=== PATIENT | male | born 1970 | race Hispanic/Latino ===

== ENCOUNTER 2018-01-09 22:07 | Emergency (ER) | payer OTHER ==
--- NOTE | 2018-01-10 00:09 | XRay Report ---
FINAL REPORT EXAM: XR FOOT 3+V RT TECHNIQUE: Three views of the right foot: AP, oblique and lateral projections. PRIORS: None. FINDINGS: Osseous mineralization is normal. There is suggested cortical irregularity at the medial margin of the 4th toe proximal phalanx base which may represent a nondisplaced fracture in the appropriate clinical setting. Metatarsals intact. Bipartite tibial sesamoid and mild degenerative changes of the 1st metatarsophalangeal joint. Mild midfoot degenerative changes. There is no ankle joint effusion. A small plantar calcaneal spurs present. IMPRESSION: Possible nondisplaced fracture at the 4th toe proximal phalanx base. Correlation with clinical exam requested. Mild degenerative changes of the midfoot and 1st metatarsophalangeal joint. Small heel spur at the plantar fascia origin. HISTORY: post glf, foot pain and cannot bare weight.
--- NOTE | 2018-01-10 02:55 | Emergency Department Report ---
ED Lower Extremity HPI - General Chief Complaint: Extremity Injury, Lower Stated Complaint: RT FOOT PAIN Time Seen by Provider: 01/10/18 02:50 Source: patient Mode of arrival: Ambulatory Limitations: No Limitations - History of Present Illness Initial Comments: 47-year-old male comes in complaining or right foot pain. Patient states he was in a ground level fall at home while he was working. No other complaints voiced. This report is pain to 10 out of 10 on his pain scale. Patient reports that he cannot bear any weight on his right foot. MD Complaint: foot injury -: This afternoon Injury: Toes: Right (4th ) Type of Injury: unknown Place: home Severity scale (0 -10): 10 Improves With: immobilization, rest Worsens With: weight bearing, palpation Context: fall Associated Symptoms: swelling - Related Data Previous Rx's Medication Instructions Recorded Last Taken Type traMADol [Ultram] 50 mg PO Q6H PRN #5 tablet 12/23/13 Unknown Rx HYDROcodone/APAP 5-325 [[place] 5 mg PO TID PRN #12 tablet 01/10/18 Unknown Rx 5-325 mg TAB] Ibuprofen [Motrin 800 MG tab] 800 mg PO Q8HR PRN #30 tablet 01/10/18 Unknown Rx Allergies Allergy/AdvReac Type Severity Reaction Status Date / Time Penicillins Allergy Unknown Verified 06/09/13 20:56 ED Review of Systems ROS: Stated complaint: RT FOOT PAIN Other details as noted in HPI Comment: All other systems reviewed and negative Gastrointestinal: denies: abdominal pain, nausea, diarrhea Genitourinary: denies: urgency, dysuria Musculoskeletal: joint swelling, arthralgia Skin: denies: rash, lesions Neurological: denies: headache, weakness, paresthesias Psychiatric: denies: anxiety, depression Hematological/Lymphatic: denies: easy bleeding, easy bruising ED Past Medical Hx - Past Medical History Previous Medical History?: Yes Hx CVA: Yes (2 "mini strokes", no deficits 1999) - Surgical History Past Surgical History?: Yes Additional Surgical History: right knee surg x6, pylonidal cyst surg x2, cervical fusion with bone graft from left hip 2 weeks ago - Social History Smoking Status: Current Every Day Smoker Substance Use Type: Alcohol - Medications Home Medications: Home Medications Medication Instructions Recorded Confirmed Last Taken Type traMADol [Ultram] 50 mg PO Q6H PRN #5 tablet 12/23/13 Unknown Rx HYDROcodone/APAP 5-325 [[place] 5 mg PO TID PRN #12 tablet 01/10/18 Unknown Rx 5-325 mg TAB] Ibuprofen [Motrin 800 MG tab] 800 mg PO Q8HR PRN #30 tablet 01/10/18 Unknown Rx ED Physical Exam - General Limitations: No Limitations General appearance: alert, in no apparent distress - Respiratory Respiratory exam: Present: normal lung sounds bilaterally. Absent: respiratory distress - Cardiovascular Cardiovascular Exam: Present: regular rate, normal rhythm. Absent: systolic murmur, diastolic murmur, rubs, gallop - Expanded Lower Extremity Exam Right Upper Leg exam: Present: normal inspection, full ROM Knee exam: Present: normal inspection, full ROM Lower Leg exam: Present: normal inspection, full ROM Ankle exam: Present: normal inspection, full ROM. Absent: tenderness, swelling Foot/Toe exam: Present: tenderness (fourth digit), swelling. Absent: ecchymosis , deformity, dislocation Neuro vascular tendon exam: Present: no vascular compromise Gait: Positive: observed and limited by pain - Back Exam Back exam: Present: normal inspection - Neurological Exam Neurological exam: Present: alert, oriented X3 - Psychiatric Psychiatric exam: Present: normal affect, normal mood - Skin Skin exam: Present: warm, dry, intact, normal color. Absent: rash ED Course Vital Signs 01/09/18 23:40 Temperature 98.1 F Pulse Rate 82 Respiratory 18 Rate Blood Pressure 115/76 O2 Sat by Pulse 95 Oximetry ED Lower Extremity MDM - Medical Decision Making Patient has been evaluated by this provider in fast track. X-rays of foot shows that there is a nondisplaced proximal fracture of the 4 phalanx Discharge patient on [place] 5/325 dispensed 12 pills well as ibuprofen 800 mg every 8 hours when necessary for pain Referral to orthopedist. Surgical boot with shelton taped to the toe and crutches. Patient verbalizes understanding Critical care attestation.: If time is entered above; I have spent that time in minutes in the direct care of this critically ill patient, excluding procedure time. ED Disposition Clinical Impression: Toe fracture, right Qualifiers: Toe: lesser toe Fracture type: closed Phalanx: proximal Fracture alignment: nondisplaced Fracture healing: with nonunion Disposition: - TO HOME OR SELFCARE Is pt being admited?: No Does the pt Need Aspirin: No Condition: Stable Instructions: Toe Fracture (ED) Additional Instructions: These take pain medication as prescribed. Do not operate heavy machinery while taking the [place]. Please follow up with orthopedics. Please continue with ice resting elevation to injured foot. Prescriptions: HYDROcodone/APAP 5-325 [[place] 5-325 mg TAB] 5 mg PO TID PRN #12 tablet PRN Reason: Pain Ibuprofen [Motrin 800 MG tab] 800 mg PO Q8HR PRN #30 tablet PRN Reason: Pain Referrals: PRIMARY CARE, [Primary Care Provider] - 3-5 Days OCTAVIA SNYDER MD [Staff Physician] - 3-5 Days ELEANOR PARIS MD [Staff Physician] - 3-5 Days Forms: Work/School Release Form(ED)
[2018-01-10 03:15] VITALS: BP 110/75
== END 2018-01-10 03:00 | disposition home or self-care (01) ==
LOC: ED 22:07
DX: S92.514A Nondisplaced fracture of proximal phalanx of right lesser toe(s), initial encounter for closed fracture (principal); F17.200 Nicotine dependence, unspecified, uncomplicated; Z98.890 Other specified postprocedural states; Z88.0 Allergy status to penicillin; Z86.73 Personal history of transient ischemic attack (TIA), and cerebral infarction without residual deficits; W18.39XA Other fall on same level, initial encounter; Y93.89 Activity, other specified; Y92.009 Unspecified place in unspecified non-institutional (private) residence as the place of occurrence of the external cause; Y99.8 Other external cause status

== ENCOUNTER 2018-11-05 01:35 | Emergency (ER) | payer SELFPAY ==
--- NOTE | 2018-11-05 03:50 | Ultrasound Report ---
PROCEDURE: US TESTICULAR DOPPLER COMP TECHNIQUE: Ultrasound images obtained of bilateral testicles with color flow and Doppler tracings. HISTORY: pain and swelling COMPARISONS: No priors FINDINGS: The right testicle is normal in contour and echotexture with normal intratesticular vascularity. The right epididymis is within normal limits. There is no evidence of right hydrocele. The left testicle is normal in contour and echotexture with normal vascularity. Left epididymis within normal limits. Prominent vessels adjacent to the left testicle suggest varicocele IMPRESSION: Testicles normal in contour and echotexture with normal vascularity. Prominent vessels lateral to the left testicle consistent with varicocele.. This document is electronically signed by Ever Keene MD., November 05 2018 03:48:42 AM ET
[2018-11-05] MEDS ORDERED: NORCO 5/325 PO ONE (04:26)
--- NOTE | 2018-11-05 04:28 | Emergency Department Report ---
ED Male HPI - General Chief complaint: Urogenital-Male Stated complaint: GROIN PAIN Source: patient Mode of arrival: Ambulatory Limitations: No Limitations - History of Present Illness Initial comments: This is a 48-year-old male who presents with enlarged left testicle and groin pain for 1 day. 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 Reports swelling and pain started last night when he got home from work. He reports pain is 10 out of 10 on pain scale and worse with sitting or walking. He denies urinary frequency, urgency, dysuria, hematuria, pelvic pain, penile discharge, or low back pain. MD Complaint: testicle pain (left), testicle swelling Onset/Timin -: days(s) Location: right testicle Radiation: none Severity: severe Severity scale (0 -10): 10 Quality: aching Consistency: constant Improves with: none Worsens with: movement, other (sitting) swelling. denies: discharge, mass, rash, urinary retention, blood in urine, dysuria, fever, nausea/vomiting, incontinence - Related Data Sexually active: Yes (one partner) Previous Rx's Medication Instructions Recorded Last Taken Type traMADol [Ultram] 50 mg PO Q6H PRN #5 tablet 12/23/13 Unknown Rx HYDROcodone/APAP 5-325 [[place] 5 mg PO TID PRN #12 tablet 01/10/18 Unknown Rx 5-325 mg TAB] Ibuprofen [Motrin 800 MG tab] 800 mg PO Q8HR PRN #30 tablet 01/10/18 Unknown Rx Ciprofloxacin HCl [Cipro] 500 mg PO BID #20 tablet 11/05/18 Unknown Rx traMADol [Ultram 50 MG tab] 50 mg PO Q6HR PRN #12 tablet 11/05/18 Unknown Rx Allergies Allergy/AdvReac Type Severity Reaction Status Date / Time Penicillins Allergy Unknown Verified 06/09/13 20:56 ED Review of Systems ROS: Stated complaint: GROIN PAIN Other details as noted in HPI Constitutional: denies: chills, fever Respiratory: denies: cough, shortness of breath, wheezing Cardiovascular: denies: chest pain, palpitations Gastrointestinal: denies: abdominal pain, nausea, diarrhea Genitourinary: testicular pain (left). denies: urgency, dysuria Skin: denies: rash, lesions Neurological: denies: headache, weakness, paresthesias ED Past Medical Hx - Past Medical History Hx CVA: Yes (2 "mini strokes", no deficits 1999) - Surgical History Additional Surgical History: right knee surg x6, pylonidal cyst surg x2, cervical fusion with bone graft from left hip 2 weeks ago - Social History Smoking Status: Current Every Day Smoker Substance Use Type: Alcohol - Medications Home Medications: Home Medications Medication Instructions Recorded Confirmed Last Taken Type traMADol [Ultram] 50 mg PO Q6H PRN #5 tablet 12/23/13 Unknown Rx HYDROcodone/APAP 5-325 [[place] 5 mg PO TID PRN #12 tablet 01/10/18 Unknown Rx 5-325 mg TAB] Ibuprofen [Motrin 800 MG tab] 800 mg PO Q8HR PRN #30 tablet 01/10/18 Unknown Rx Ciprofloxacin HCl [Cipro] 500 mg PO BID #20 tablet 11/05/18 Unknown Rx traMADol [Ultram 50 MG tab] 50 mg PO Q6HR PRN #12 tablet 11/05/18 Unknown Rx ED Physical Exam - General Limitations: No Limitations General appearance: alert, in no apparent distress - Respiratory Respiratory exam: Present: normal lung sounds bilaterally. Absent: respiratory distress - Cardiovascular Cardiovascular Exam: Present: regular rate, normal rhythm. Absent: systolic murmur, diastolic murmur, rubs, gallop - GI/Abdominal GI/Abdominal exam: Present: soft, normal bowel sounds - exam: Present: testicular tenderness (right), scrotal swelling (right), circumcision. Absent: urethral discharge, vertical testicular lie External exam: Present: normal external exam - Neurological Exam Neurological exam: Present: alert, oriented X3 - Psychiatric Psychiatric exam: Present: normal affect, normal mood - Skin Skin exam: Present: warm, dry, intact, normal color. Absent: rash ED Medical Decision Making - Radiology Data Radiology results: report reviewed PROCEDURE: US TESTICULAR DOPPLER COMP TECHNIQUE: Ultrasound images obtained of bilateral testicles with color flow and Doppler tracings. HISTORY: pain and swelling COMPARISONS: No priors FINDINGS: The right testicle is normal in contour and echotexture with normal intratesticular vascularity. The right epididymis is within normal limits. There is no evidence of right hydrocele. The left testicle is normal in contour and echotexture with normal vascularity. Left epididymis within normal limits. Prominent vessels adjacent to the left testicle suggest varicocele IMPRESSION: Testicles normal in contour and echotexture with normal vascularity. Prominent vessels lateral to the left testicle consistent with varicocele.. - Medical Decision Making Patient was examined by me. Vitals are normal and patient is in no acute distress. Given [place] 5/325 mg by mouth once while in ER. Obtained a testicular ultrasound. Ultrasound was dictated by the radiologist and report was reviewed by myself. Testicles normal in contour and echotexture with normal vascularity. Prominent vessels lateral to the left testicle consistent with varicocele. The findings are susceptible of epididymitis. Patient informed of results. Start Cipro 500 mg by mouth twice a day 10 days and tramadol 50 mg by mouth every 6 hours when necessary for pain. Plan discussed with patient to discharge home and treat outpatient. He agrees with ER plan. Patient discharged home in stable condition. Follow up with PCP in 2-3 days. Critical care attestation.: If time is entered above; I have spent that time in minutes in the direct care of this critically ill patient, excluding procedure time. ED Disposition Clinical Impression: Testicular pain, left, Testicular swelling, left, Left varicocele, Epididymitis Disposition: - TO HOME OR SELFCARE Is pt being admited?: No Does the pt Need Aspirin: No Condition: Stable Instructions: Epididymitis (ED), Testicle Pain (ED), Varicocele (ED) Additional Instructions: Complete full course of antibiotics as prescribed. Avoid drinking alcohol while taking antibiotics and for up to 24 hours after completion. Follow up with the primary care provider for further evaluation. We are a jock strap for added support while sitting and walking. Return to the emergency room if increased swelling, pain, fever. Prescriptions: Ciprofloxacin HCl [Cipro] 500 mg PO BID #20 tablet traMADol [Ultram 50 MG tab] 50 mg PO Q6HR PRN #12 tablet PRN Reason: Pain Referrals: MATILDE CHAPPELL MD [Primary Care Provider] - 3-5 Days [facility] [Outside] - 3-5 Days LUCAS GUTIERREZ MD [Staff Physician] - 3-5 Days Forms: STI Treatment and Prevention Time of Disposition: 04:44
[2018-11-05 07:45] VITALS: BP 122/78
== END 2018-11-05 05:05 | disposition home or self-care (01) ==
LOC: ED 01:35
DX: N45.1 Epididymitis (principal); I86.1 Scrotal varices; F17.200 Nicotine dependence, unspecified, uncomplicated; Z86.73 Personal history of transient ischemic attack (TIA), and cerebral infarction without residual deficits; Z88.0 Allergy status to penicillin
CPT/HCPCS: 93975

== ENCOUNTER 2018-12-08 09:35 | Emergency (ER) | payer SELFPAY ==
[2018-12-08] MEDS ORDERED: TORADOL IM ONE (10:30)
[2018-12-08] MEDS ORDERED: DELTASONE PO ONE (10:30)
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
--- NOTE | 2018-12-08 11:19 | Cat Scan Report ---
EXAM: CT LUMBAR SPINE WO CON HISTORY: back pain/injury TECHNIQUE: Spiral axial CT images with sagittal and coronal reformatted images are obtained through t he lumbar spine without the administration of intravenous or intrathecal contrast. COMPARISON: None available. FINDINGS: There is no vertebral fracture seen. There is no gross malalignment, spondylolisthesis, retrolisthes is, or spondylolysis seen. There is an approximately 1.7 cm lytic nonexpansile lesion in the central inferior aspect of the L5 vertebral body keeping with a cavernous hemangioma. There is evidence for mild DDD at levels L1-L5 levels, marked by anterior disc bulge/marginal osteoph yte complexes; no gross posterior disc bulge or marginal osteophyte is seen. At L5/S1, there is a mil d chronic appearing posterior disc bulge (projecting 4.9 mm AP) left anterior thecal sac, lateral rec ess, and neural foraminal encroachment, with potential for left L5 and S1 root impingements. Clinical correlation is advised. No evidence for degenerative disc disease or facet joint degenerative diseas e is otherwise seen. There is no gross acute disc herniation seen. Please note that subtle soft tissue abnormalities can b e obscured in this radiographic setting. Consider follow-up MRI if clinically warranted. There is severe aortoiliac atherosclerosis. IMPRESSION: 1. No gross vertebral fracture or malalignment seen. 2. No gross acute disc herniation seen. 3. L5/S1 DDD with mild chronic appearing posterior disc bulge (projecting 4.9 mm AP) left anterior t hecal sac, lateral recess, and neural foraminal encroachment, with potential for left L5 and S1 root impingements. Clinical correlation is advised. This document is electronically signed by Coni Renee MD., Dec 08 2018 11:16:54 AM ET
[2018-12-08 12:25] VITALS: BP 109/74
== END 2018-12-08 12:25 | disposition home or self-care (01) ==
LOC: ED 09:35
DX: M54.5 Low back pain (principal); M19.90 Unspecified osteoarthritis, unspecified site; Z88.0 Allergy status to penicillin; V89.2XXA Person injured in unspecified motor-vehicle accident, traffic, initial encounter; Y93.89 Activity, other specified; Y92.488 Other paved roadways as the place of occurrence of the external cause; Y99.8 Other external cause status
CPT/HCPCS: 72131; 96372; 99283; J1885; J7512

== ENCOUNTER 2019-02-19 23:25 | Emergency (ER) | payer SELFPAY ==
[2019-02-19 23:32] VITALS: BP 132/78
--- NOTE | 2019-02-20 00:57 | Emergency Department Report ---
HPI - General Chief Complaint: Extremity Injury, Lower Time Seen by Provider: 02/20/19 00:35 - HPI HPI: Patient is a 48-year-old male who comes to the ER today complaining of a sore behind his left calf after getting in the [place] with his family. Also com plaining of left knee pain. He has mild swelling of his left knee. He denies any trauma or fall. Patient is ambulatory. ED Past Medical Hx - Past Medical History Previous Medical History?: Yes Hx CVA: Yes (2 "mini strokes", no deficits 1999) Hx Diabetes: Yes Hx Asthma: Yes - Surgical History Past Surgical History?: Yes Additional Surgical History: right knee surg x6, pylonidal cyst surg x2, cervical fusion with bone graft from left hip 2 weeks ago - Family History Family history: no significant - Social History Smoking Status: Current Every Day Smoker Substance Use Type: None - Medications Home Medications: Home Medications Medication Instructions Recorded Confirmed Last Taken Type predniSONE [Deltasone] 20 mg PO DAILY #5 tablet 02/20/19 Unknown Rx ED Review of Systems ROS: Stated complaint: LT KNEE SWELLING WITH PAIN Other details as noted in HPI Comment: All other systems reviewed and negative Physical Exam - Physical Exam Vital Signs: Vital Signs 02/19/19 23:28 Temperature 97.4 F L Pulse Rate 74 Respiratory 18 Rate Blood Pressure 132/78 O2 Sat by Pulse 97 Oximetry Physical Exam: alert and oriented no focal def ambulatory insect bite l calf. no abscess. no infection. dp plus 2 bilaterally no leg swelling. mild knee swelling - ant. no pain on joint line palpation. no cyst. s1s2 lungs cta abd snt ED Course Vital Signs 02/19/19 23:28 Temperature 97.4 F L Pulse Rate 74 Respiratory 18 Rate Blood Pressure 132/78 O2 Sat by Pulse 97 Oximetry ED Medical Decision Making - Radiology Data Radiology results: report reviewed, image reviewed - Medical Decision Making xray neg ambulatory vss no fever mild inflamation around insect bite dc home with dc plan of care and pcp followup Vital Signs 02/19/19 23:28 Temperature 97.4 F L Pulse Rate 74 Respiratory 18 Rate Blood Pressure 132/78 O2 Sat by Pulse 97 Oximetry Critical care attestation.: If time is entered above; I have spent that time in minutes in the direct care of this critically ill patient, excluding procedure time. ED Disposition Clinical Impression: Insect bite, Knee pain Disposition: DC-01 TO HOME OR SELFCARE Is pt being admited?: No Does the pt Need Aspirin: No Condition: Stable Additional Instructions: meds as ordered today keep insect bite clean and dry no ointment over the counter motrin and tylenol for pain rest/elevate your leg follow up pcp this week referral below xray normal today Referrals: PRIMARY CAREMD [Primary Care Provider] - 3-5 Days JOSE ANGEL CONKLIN MD [Staff Physician] - 3-5 Days Time of Disposition: 02:04
[2019-02-20] MEDS ORDERED: IBUPROFEN PO ONE (01:12)
--- NOTE | 2019-02-20 02:04 | XRay Report ---
LEFT KNEE 3 VIEWS INDICATION / CLINICAL INFORMATION: Left knee pain and swelling for 2 weeks with erythema. History of insect bite to left lower leg. COMPARISON: None available. FINDINGS: BONES and JOINT(S): No acute fracture or subluxation. No significant arthritis. SOFT TISSUES: No significant abnormality. ADDITIONAL FINDINGS: None. IMPRESSION: No acute findings. Signer Name: Wil Meza MD Signed: 02/20/2019 1:59 AM Workstation Name: [id number]
== END 2019-02-20 02:24 | disposition home or self-care (01) ==
LOC: ED 23:25
DX: S80.262A Insect bite (nonvenomous), left knee, initial encounter (principal); E11.9 Type 2 diabetes mellitus without complications; I10 Essential (primary) hypertension; F17.200 Nicotine dependence, unspecified, uncomplicated; Z88.0 Allergy status to penicillin; Z86.73 Personal history of transient ischemic attack (TIA), and cerebral infarction without residual deficits; Z98.890 Other specified postprocedural states; W57.XXXA Bitten or stung by nonvenomous insect and other nonvenomous arthropods, initial encounter; Y93.89 Activity, other specified; Y92.89 Other specified places as the place of occurrence of the external cause; Y99.8 Other external cause status
CPT/HCPCS: 99283

== ENCOUNTER 2019-06-13 21:27 | Emergency (ER) | payer SELFPAY ==
[2019-06-13 21:35] VITALS: BP 118/72
--- NOTE | 2019-06-13 22:31 | Emergency Department Report ---
Blank Doc - Documentation Documentation: 48-year-old male that presents with abscess to right buttock area. This initial assessment/diagnostic orders/clinical plan/treatment(s) is/are subject to change based on patient's health status, clinical progression and re- assessment by fellow clinical providers in the ED. Further treatment and workup at subsequent clinical providers discretion. Patient/guardians urged not to elope from the ED as their condition may be serious if not clinically assessed and managed. Initial orders include: 1- Patient sent to [facility] for further evaluation and treatment
[2019-06-13] MEDS ORDERED: LIDOCAINE (2%) 20 MG/1 ML VIAL 20 ML MDV INFILTRATI ONE ×2 (23:15→23:17)
--- NOTE | 2019-06-13 23:47 | Emergency Department Report ---
- General Chief complaint: Skin/Abscess/Foreign Body Stated complaint: KNOT ON BUTTOCKS Time Seen by Provider: 06/13/19 22:30 Source: patient Mode of arrival: Ambulatory Limitations: No Limitations - History of Present Illness Initial comments: Mr. Streeter is s 48 y/o w/m with hx of DMII, that presents with abscess to right buttock area. x 1 week, pt state pain itching redness , no fever or chills no n/v. MD complaint: abscess/boil Onset/Timin -: week(s) Tetanus Up to Date: yes Location: buttocks Severity: moderate Severity scale (0 -10): 4 Quality: other (itching) Improves with: none Worsens with: none Associated symptoms: denies other symptoms Treatments Prior to Arrival: none - Related Data Previous Rx's Medication Instructions Recorded Last Taken Type predniSONE [Deltasone] 20 mg PO DAILY #5 tablet 02/20/19 Unknown Rx Clindamycin [Clindamycin CAP] 300 mg PO Q8H 10 Days #30 cap 06/13/19 Unknown Rx traMADoL [Ultram] 50 mg PO Q6HR PRN #12 tablet 06/13/19 Unknown Rx Allergies Allergy/AdvReac Type Severity Reaction Status Date / Time Penicillins Allergy Unknown Verified 06/09/13 20:56 Abscess Boil HPI - HPI Chief Complaint: Skin/Abscess/Foreign Body Stated Complaint: KNOT ON BUTTOCKS Time Seen by Provider: 06/13/19 22:30 History: Yes Pain, No Fever, No Purulent Drainage, No Numbness, No Foreign Body, No Previous History, No Insect Bite HPI: pt presents for right buttocks abscess Home Medications: Previous Rx's Medication Instructions Recorded Last Taken Type predniSONE [Deltasone] 20 mg PO DAILY #5 tablet 02/20/19 Unknown Rx Clindamycin [Clindamycin CAP] 300 mg PO Q8H 10 Days #30 cap 06/13/19 Unknown Rx traMADoL [Ultram] 50 mg PO Q6HR PRN #12 tablet 06/13/19 Unknown Rx Allergies/Adverse Reactions: Allergies Allergy/AdvReac Type Severity Reaction Status Date / Time Penicillins Allergy Unknown Verified 06/09/13 20:56 ED Review of Systems ROS: Stated complaint: KNOT ON BUTTOCKS Other details as noted in HPI Constitutional: denies: chills, fever Eyes: denies: eye pain, eye discharge, vision change ENT: denies: ear pain, throat pain Respiratory: denies: cough, shortness of breath, wheezing Cardiovascular: denies: chest pain, palpitations Endocrine: no symptoms reported Gastrointestinal: denies: abdominal pain, nausea, diarrhea Genitourinary: denies: urgency, dysuria Musculoskeletal: denies: back pain, joint swelling, arthralgia Skin: other (abscess ). denies: rash, lesions Neurological: denies: headache, weakness, paresthesias Psychiatric: denies: anxiety, depression Hematological/Lymphatic: denies: easy bleeding, easy bruising ED Past Medical Hx - Past Medical History Previous Medical History?: Yes Hx CVA: Yes (2 "mini strokes", no deficits 1999) Hx Diabetes: Yes Hx Asthma: Yes - Surgical History Past Surgical History?: Yes Additional Surgical History: right knee surg x6, pylonidal cyst surg x2, cervical fusion with bone graft from left hip 2 weeks ago - Social History Smoking Status: Current Every Day Smoker Substance Use Type: None - Medications Home Medications: Home Medications Medication Instructions Recorded Confirmed Last Taken Type predniSONE [Deltasone] 20 mg PO DAILY #5 tablet 02/20/19 Unknown Rx Clindamycin [Clindamycin CAP] 300 mg PO Q8H 10 Days #30 cap 06/13/19 Unknown Rx traMADoL [Ultram] 50 mg PO Q6HR PRN #12 tablet 06/13/19 Unknown Rx ED Physical Exam - General Limitations: No Limitations General appearance: alert, in no apparent distress - Head Head exam: Present: atraumatic, normocephalic - Eye Eye exam: Present: normal appearance - ENT ENT exam: Present: mucous membranes moist - Neck Neck exam: Present: normal inspection - Respiratory Respiratory exam: Present: normal lung sounds bilaterally. Absent: respiratory distress - Cardiovascular Cardiovascular Exam: Present: regular rate - GI/Abdominal GI/Abdominal exam: Present: soft, normal bowel sounds. Absent: bruit, hernia - Rectal Rectal exam: Present: deferred - Extremities Exam Extremities exam: Present: normal inspection - Back Exam Back exam: Present: normal inspection, full ROM. Absent: tenderness - Neurological Exam Neurological exam: Present: alert, oriented X3, CN II-XII intact, normal gait, reflexes normal. Absent: motor sensory deficit - Psychiatric Psychiatric exam: Present: normal affect, normal mood - Skin Skin exam: Present: warm, dry, intact, normal color, erythema, other (abscess right buttocks 2x2 cm ). Absent: rash ED Course Vital Signs 06/13/19 21:32 Temperature 98.0 F Pulse Rate 81 Respiratory 18 Rate Blood Pressure 118/72 O2 Sat by Pulse 95 Oximetry - I & D Right Buttocks Type of Procedure: Simple Site: right buttocks abscess 2x2 cm Blade Size: 11 I & D Procedure: betadine prep, sterile dressing applied Progress: wound cleaned with betadine solution, anesthesia with 2% lidocaine injection x 2 cc, incision with 11 blade x 1, moderate purulent drainage, wound irrigated with sterile saline x 20 cc, iodoform packing and sterile dressing applied. Pt and given wound care instructions , pt verbalized agreement and understanding of same. All bleeding is controlled, pt tolerated procedure with minimal distress. ED Medical Decision Making - Medical Decision Making abscess for I&D , see procedure note, pt tolerated with minimal distress, all bleeding is controlled , pt will follow up with pcp in 2-3 days, clindamycin , ultram dressing changes daily , pt dc'd to home in stable condition Critical care attestation.: If time is entered above; I have spent that time in minutes in the direct care of this critically ill patient, excluding procedure time. ED Disposition Clinical Impression: Abscess of buttock Disposition: DC-01 TO HOME OR SELFCARE Is pt being admited?: No Does the pt Need Aspirin: No Condition: Stable Instructions: Abscess (ED), Abscess Incision and Drainage (ED) Prescriptions: Clindamycin [Clindamycin CAP] 300 mg PO Q8H 10 Days #30 cap traMADoL [Ultram] 50 mg PO Q6HR PRN #12 tablet PRN Reason: Pain Referrals: [facility] [Outside] - 3-5 Days Forms: Work/School Release Form(ED) Time of Disposition: 23:57
== END 2019-06-13 23:57 | disposition home or self-care (01) ==
LOC: ED 21:27
DX: L02.31 Cutaneous abscess of buttock (principal); E11.9 Type 2 diabetes mellitus without complications; J45.909 Unspecified asthma, uncomplicated; F17.200 Nicotine dependence, unspecified, uncomplicated; Z86.73 Personal history of transient ischemic attack (TIA), and cerebral infarction without residual deficits; Z88.0 Allergy status to penicillin

== ENCOUNTER 2019-09-12 21:01 | Emergency (ER) | payer SELFPAY ==
[2019-09-12 21:13] VITALS: BP 115/73
--- NOTE | 2019-09-12 22:18 | Emergency Department Report ---
Blank Doc - Documentation Documentation: 49-year-old male that presents with URI symptoms and pain in the pubic area. This initial assessment/diagnostic orders/clinical plan/treatment(s) is/are subject to change based on patient's health status, clinical progression and re- assessment by fellow clinical providers in the ED. Further treatment and workup at subsequent clinical providers discretion. Patient/guardians urged not to elope from the ED as their condition may be serious if not clinically assessed and managed. Initial orders include: 1- Patient sent to [facility] for further evaluation and treatment 2- CXR 3- UA
[2019-09-12 23:09] LABS: Bilirubin,Urine NEG (Negative); Blood,Urine NEG (Negative); Color,Urine Yellow (Yellow); Mucus,Urine FEW /HPF; Protein,Urine <15 mg/dL mg/dL (Negative)
[2019-09-12] MEDS ORDERED: methylPREDNISolone Sod Succinate 125 MG/2 ML INJ IV ONE (23:09)
[2019-09-12] MEDS ORDERED: IPRATROPIUM/ALBUTEROL SULFATE 3 ML AMPUL.NEB IH ONE (23:09)
[2019-09-12] MEDS ORDERED: ACETAMINOPHEN 500 MG TAB PO ONE (23:10)
[2019-09-12] MEDS ORDERED: IBUPROFEN 600 MG TAB PO ONE (23:10)
--- NOTE | 2019-09-13 | XRay Report ---
CHEST 2 VIEWS INDICATION / CLINICAL INFORMATION: cough. COMPARISON: 2 views of the chest from 06/09/2013. FINDINGS: SUPPORT DEVICES: None. HEART / MEDIASTINUM: No significant abnormality. LUNGS / PLEURA: No significant pulmonary or pleural abnormality. No pneumothorax. ADDITIONAL FINDINGS: No significant additional findings. IMPRESSION: 1. No acute abnormality of the chest. Signer Name: Wil Meza MD Signed: 09/12/2019 11:55 PM Workstation Name: [id number]
[2019-09-13 00:08] LABS: Basophils # (Auto) 0.1 K/mm3 (0.0-0.1); Basophils % (Auto) 0.4 % (0.0-1.8); Eosinophils # (Auto) 0.3 K/mm3 (0.0-0.4); Eosinophils % (Auto) 2.7 % (0.0-4.3); Hematocrit 45.4 % (35.5-45.6); Lymphocytes # (Auto) 4.3 K/mm3 (1.2-5.4); Lymphocytes % (Auto) 33.3 % (13.4-35.0); Mean Corpuscular HGB Conc 33 % (32-34); Mean Corpuscular Volume 93 fl (84-94); Monocytes # (Auto) 1.2 K/mm3 (0.0-0.8); Monocytes % (Auto) 9.6 % (0.0-7.3); Platelet Count 294 K/mm3 (140-440); Red Blood Count 4.88 M/mm3 (3.65-5.03); Red Cell Distribution Width 14.1 % (13.2-15.2)
[2019-09-13 00:17] LABS: Alanine Aminotransferase 14 units/L (7-56); Albumin 4.2 g/dL (3.9-5); BUN/Creatinine Ratio 10; Blood Urea Nitrogen 12 mg/dL (9-20); Calcium 9.3 mg/dL (8.4-10.2); Hemolysis Index 9
--- NOTE | 2019-09-13 00:47 | Emergency Department Report ---
- General Chief Complaint: Upper Respiratory Infection Stated Complaint: SOB COUGH BODYACHES Time Seen by Provider: 09/12/19 22:16 Source: patient Mode of arrival: Ambulatory Limitations: No Limitations - History of Present Illness Initial Comments: Patient is a 49-year-old white male with past medical history of Asthma, NIDDM and CVA who presents to the ED with complaint of acute onset persistent severe diffuse body aches and pains, subjective fever and chills, nasal and sinus congestion, frontal sinus pressure and headache, persistent dry cough with shortness of breath and lack of appetite for the last 1 week. Patient states that in the last 2 days he has not been able to sleep because of severe diffuse body aches and pains. Patient denies dizziness, abdominal pain, chest pain, diaphoresis, nausea and vomiting, diarrhea, dysuria, urinary frequency and urgency, syncope, palpitations, or sore throat. Patient states that he has in the past been taking [id number] medications with no relief. MD Complaint: fever, cough, rhinorrhea, nasal congestion, sinus pain, other (diffuse) -: Sudden, week(s) (1) Severity: severe Severity scale (0 -10): 7 Quality: sharp, aching Consistency: constant Improves With: nothing Worsens With: nothing Context: sick contacts Associated Symptoms: denies other symptoms, fever, chills, myalgias, headache, rhinorrhea, nasal congestion, cough, shortness of breath. denies: chest pain, abdominal pain, nausea, vomiting, diarrhea, weight loss, hoarseness, ear pain Treatments Prior to Arrival: none - Related Data Previous Rx's Medication Instructions Recorded Last Taken Type predniSONE [Deltasone] 20 mg PO DAILY #5 tablet 02/20/19 Unknown Rx Clindamycin [Clindamycin CAP] 300 mg PO Q8H 10 Days #30 cap 06/13/19 Unknown Rx traMADoL [Ultram] 50 mg PO Q6HR PRN #12 tablet 06/13/19 Unknown Rx Albuterol Sulfate [Proventil Hfa] 1 puff IH Q6H PRN #1 inh 09/13/19 Unknown Rx Benzonatate [Tessalon Perles] 100 mg PO Q8HR #30 capsule 09/13/19 Unknown Rx Cetirizine HCl [Zyrtec 10mg tab] 10 mg PO DAILY #30 tablet 09/13/19 Unknown Rx Doxycycline Hyclate 100 mg PO Q12H #20 tablet. 09/13/19 Unknown Rx Ibuprofen [Motrin] 600 mg PO Q8H PRN #24 tablet 09/13/19 Unknown Rx Prednisone [predniSONE 10 mg 10 mg PO .TAPER #1 tab.ds.pk 09/13/19 Unknown Rx (6-Day Pack, 21 Tabs)] Allergies Allergy/AdvReac Type Severity Reaction Status Date / Time Penicillins Allergy Unknown Verified 06/09/13 20:56 ED Review of Systems ROS: Stated complaint: SOB COUGH BODYACHES Other details as noted in HPI Constitutional: chills, fever, malaise, weakness Eyes: denies: eye pain, eye discharge, vision change ENT: congestion, other (Sinus pressure and headache). denies: ear pain, throat pain Respiratory: cough, shortness of breath, wheezing Cardiovascular: denies: chest pain, palpitations Endocrine: no symptoms reported Gastrointestinal: denies: abdominal pain, nausea, vomiting, diarrhea Genitourinary: denies: urgency, dysuria Musculoskeletal: back pain, arthralgia, myalgia. denies: joint swelling Skin: denies: rash, lesions Neurological: headache. denies: weakness, paresthesias Psychiatric: denies: anxiety, depression Hematological/Lymphatic: denies: easy bleeding, easy bruising ED Past Medical Hx - Past Medical History Hx CVA: Yes (2 "mini strokes", no deficits 1999) Hx Diabetes: Yes Hx Asthma: Yes - Surgical History Additional Surgical History: right knee surg x6, pylonidal cyst surg x2, cervical fusion with bone graft from left hip 2 weeks ago - Social History Smoking Status: Current Every Day Smoker - Medications Home Medications: Home Medications Medication Instructions Recorded Confirmed Last Taken Type predniSONE [Deltasone] 20 mg PO DAILY #5 tablet 02/20/19 Unknown Rx Clindamycin [Clindamycin CAP] 300 mg PO Q8H 10 Days #30 cap 06/13/19 Unknown Rx traMADoL [Ultram] 50 mg PO Q6HR PRN #12 tablet 06/13/19 Unknown Rx Albuterol Sulfate [Proventil Hfa] 1 puff IH Q6H PRN #1 inh 09/13/19 Unknown Rx Benzonatate [Tessalon Perles] 100 mg PO Q8HR #30 capsule 09/13/19 Unknown Rx Cetirizine HCl [Zyrtec 10mg tab] 10 mg PO DAILY #30 tablet 09/13/19 Unknown Rx Doxycycline Hyclate 100 mg PO Q12H #20 tablet. 09/13/19 Unknown Rx Ibuprofen [Motrin] 600 mg PO Q8H PRN #24 tablet 09/13/19 Unknown Rx Prednisone [predniSONE 10 mg 10 mg PO .TAPER #1 tab.ds.pk 09/13/19 Unknown Rx (6-Day Pack, 21 Tabs)] ED Physical Exam - General Limitations: No Limitations General appearance: alert, in no apparent distress - Head Head exam: Present: atraumatic, normocephalic, normal inspection - Eye Eye exam: Present: normal appearance, PERRL, EOMI Pupils: Present: normal accommodation - ENT ENT exam: Present: normal orophraynx, mucous membranes moist, TM's normal bilaterally, normal external ear exam, other (Grossly congested nasal passages; palpable frontal sinus pressure and tenderness) - Neck Neck exam: Present: normal inspection, full ROM. Absent: tenderness, lymphadenopathy - Respiratory Respiratory exam: Present: wheezes (Mildly diffuse coarse wheezes throughout). Absent: respiratory distress, rales, rhonchi, chest wall tenderness, accessory muscle use, decreased breath sounds, prolonged expiratory - Cardiovascular Cardiovascular Exam: Present: regular rate, normal rhythm, normal heart sounds. Absent: systolic murmur, diastolic murmur, rubs, gallop - GI/Abdominal GI/Abdominal exam: Present: soft, normal bowel sounds. Absent: tenderness, hyperactive bowel sounds, hypoactive bowel sounds - Extremities Exam Extremities exam: Present: normal inspection, full ROM, normal capillary refill - Back Exam Back exam: Present: normal inspection, full ROM. Absent: tenderness, CVA tenderness (R), CVA tenderness (L), muscle spasm, paraspinal tenderness, vertebral tenderness - Neurological Exam Neurological exam: Present: alert, oriented X3, CN II-XII intact, normal gait, reflexes normal - Psychiatric Psychiatric exam: Present: normal affect, normal mood - Skin Skin exam: Present: warm, dry, intact, normal color. Absent: rash ED Course Vital Signs 09/12/19 09/12/19 09/13/19 21:07 23:56 01:10 Temperature 98.2 F Pulse Rate 92 H 83 Pulse Rate [ 20 L Anterior] Respiratory 20 18 Rate Respiratory 18 Rate [Anterior] Blood Pressure 115/73 [Right] O2 Sat by Pulse 98 97 Oximetry ED Medical Decision Making - Lab Data Result diagrams: 09/12/19 23:16 09/12/19 23:16 - Radiology Data Radiology results: report reviewed, image reviewed Chest x-ray shows no acute cardiopulmonary abnormalities or pneumonitis, pleural effusion or pneumothorax. - Medical Decision Making This is a 49-year-old male who presented to the ED with acute onset persistent severe diffuse body aches and pains, nasal and sinus congestion, frontal sinus pressure, dry cough, and wheezing and shortness of breath. In the ED, patient is alert and oriented x3 and is not in any distress but appears to be in significant discomfort. Patient was treated in the ED for pain, also received DuoNeb and Solu-Medrol in the ED. On reevaluation, patient's wheezing resolved and patient pain is well controlled. Chest x-ray shows no acute cardiopulmonary abnormalities or pneumonitis. Lab test results were reviewed and are unre markable. Patient was discharged home on medications and advised to follow-up with his primary care physician in 5 to 7 days for reevaluation. Patient was advised to return to the ED immediately if symptoms get worse. - Differential Diagnosis Asthmatic bronchitis; Sinusitis; URI; Pneumonia Critical care attestation.: If time is entered above; I have spent that time in minutes in the direct care of this critically ill patient, excluding procedure time. ED Disposition Clinical Impression: Acute asthmatic bronchitis, Acute upper respiratory infection, Acute bacterial sinusitis Disposition: DC-01 TO HOME OR SELFCARE Is pt being admited?: No Does the pt Need Aspirin: No Condition: Stable Instructions: Upper Respiratory Infection (ED), Acute Bronchitis (ED), Acute Bacterial Rhinosinusitis (ED) Additional Instructions: Take medication with food, drink plenty of fluids and follow-up with your primary care physician in 7 to 10 days for reevaluation. Return to the ED immediately if symptoms get worse. Prescriptions: Doxycycline Hyclate 100 mg PO Q12H #20 tablet. Ibuprofen [Motrin] 600 mg PO Q8H PRN #24 tablet PRN Reason: Pain Prednisone [predniSONE 10 mg (6-Day Pack, 21 Tabs)] 10 mg PO .TAPER #1 tab.ds.pk Albuterol Sulfate [Proventil Hfa] 1 puff IH Q6H PRN #1 inh PRN Reason: Dyspnea Benzonatate [Tessalon Perles] 100 mg PO Q8HR #30 capsule Cetirizine HCl [Zyrtec 10mg tab] 10 mg PO DAILY #30 tablet Referrals: [facility] [Outside] - 7-10 days Forms: Work/School Release Form(ED) Time of Disposition: 00:51 Print Language: MALAY
== END 2019-09-13 01:10 | disposition home or self-care (01) ==
LOC: ED 21:01
DX: J45.909 Unspecified asthma, uncomplicated (principal); J01.90 Acute sinusitis, unspecified; E11.9 Type 2 diabetes mellitus without complications; F17.200 Nicotine dependence, unspecified, uncomplicated; Z86.73 Personal history of transient ischemic attack (TIA), and cerebral infarction without residual deficits
CPT/HCPCS: 36415; 71046; 80053; 81001; 85025; 87086; 94644; 96374; 99284; J2930; 94640

== ENCOUNTER 2019-10-10 03:01 | Observation (INO) | payer OTHER ==
--- NOTE | 2019-10-10 03:16 | Emergency Department Report ---
<YVONNE JULES III - Last Filed: 10/10/19 07:00> ED Shortness of Breath HPI - General Stated Complaint: FLAVIA Time Seen by Provider: 10/10/19 03:14 Source: patient Mode of arrival: Stretcher Limitations: No Limitations - History of Present Illness Initial Comments: Patient is a 49-year-old male that presents emergency room with complaints of shortness of breath and chest pain. Patient states his shortness of breath been going on for a week. Patient states his chest pain started yesterday. Patient states his symptoms are worsening. Patient states he has not seen a doctor for these issues. Patient denies fever and chills. Patient denies cough. Patient denies recent travel. Patient denies having any lung problems or heart problems. Patient states he has a past medical history of hyperlipidemia and diabetes. Patient states he is taking his medications. Patient states his chest pain or shortness of breath are worse with exertion and better with rest. Patient states his chest pain is on the right side of his chest. Patient patien t states that his chest pain is a 6 out of 10. Patient states the chest pain is a stabbing. MD Complaint: shortness of breath, chest pain -: Sudden Severity: moderate, severe Pain Scale: 6 Quality: stabbing Consistency: constant Improves With: rest Worsens With: exertion, movement, inspiration Known History Of: diabetes Associated Symptoms: chest pain, pain with inspiration Treatments Prior to Arrival: none - Related Data Home Oxygen Therapy: No Previous Rx's Medication Instructions Recorded Last Taken Type predniSONE [Deltasone] 20 mg PO DAILY #5 tablet 02/20/19 Unknown Rx Clindamycin [Clindamycin CAP] 300 mg PO Q8H 10 Days #30 cap 06/13/19 Unknown Rx traMADoL [Ultram] 50 mg PO Q6HR PRN #12 tablet 06/13/19 Unknown Rx Albuterol Sulfate [Proventil Hfa] 1 puff IH Q6H PRN #1 inh 09/13/19 Unknown Rx Benzonatate [Tessalon Perles] 100 mg PO Q8HR #30 capsule 09/13/19 Unknown Rx Cetirizine HCl [Zyrtec 10mg tab] 10 mg PO DAILY #30 tablet 09/13/19 Unknown Rx Doxycycline Hyclate 100 mg PO Q12H #20 tablet. 09/13/19 Unknown Rx Ibuprofen [Motrin] 600 mg PO Q8H PRN #24 tablet 09/13/19 Unknown Rx Prednisone [predniSONE 10 mg 10 mg PO .TAPER #1 tab.ds.pk 09/13/19 Unknown Rx (6-Day Pack, 21 Tabs)] Allergies Allergy/AdvReac Type Severity Reaction Status Date / Time Penicillins Allergy Unknown Verified 06/09/13 20:56 ED Review of Systems Constitutional: denies: chills, fever Eyes: denies: eye pain, eye discharge, vision change ENT: denies: ear pain, throat pain Respiratory: shortness of breath. denies: cough, wheezing Cardiovascular: chest pain. denies: palpitations Endocrine: no symptoms reported Gastrointestinal: denies: abdominal pain, nausea, diarrhea Genitourinary: denies: urgency, dysuria Musculoskeletal: denies: back pain, joint swelling, arthralgia Skin: denies: rash, lesions Neurological: denies: headache, weakness, paresthesias Psychiatric: denies: anxiety, depression Hematological/Lymphatic: denies: easy bleeding, easy bruising ED Past Medical Hx - Past Medical History Previous Medical History?: Yes Hx CVA: Yes (2 "mini strokes", no deficits 1999) Hx Diabetes: Yes Hx Asthma: Yes - Surgical History Past Surgical History?: Yes Additional Surgical History: right knee surg x6, pylonidal cyst surg x2, cervical fusion with bone graft from left hip 2 weeks ago - Family History Family history: no significant - Social History Smoking Status: Current Every Day Smoker Substance Use Type: None - Medications Home Medications: Home Medications Medication Instructions Recorded Confirmed Last Taken Type predniSONE [Deltasone] 20 mg PO DAILY #5 tablet 02/20/19 Unknown Rx Clindamycin [Clindamycin CAP] 300 mg PO Q8H 10 Days #30 cap 06/13/19 Unknown Rx traMADoL [Ultram] 50 mg PO Q6HR PRN #12 tablet 06/13/19 Unknown Rx Albuterol Sulfate [Proventil Hfa] 1 puff IH Q6H PRN #1 inh 09/13/19 Unknown Rx Benzonatate [Tessalon Perles] 100 mg PO Q8HR #30 capsule 09/13/19 Unknown Rx Cetirizine HCl [Zyrtec 10mg tab] 10 mg PO DAILY #30 tablet 09/13/19 Unknown Rx Doxycycline Hyclate 100 mg PO Q12H #20 tablet. 09/13/19 Unknown Rx Ibuprofen [Motrin] 600 mg PO Q8H PRN #24 tablet 09/13/19 Unknown Rx Prednisone [predniSONE 10 mg 10 mg PO .TAPER #1 tab.ds.pk 09/13/19 Unknown Rx (6-Day Pack, 21 Tabs)] ED Physical Exam - General Limitations: No Limitations General appearance: alert, in distress - Head Head exam: Present: atraumatic, normocephalic - Eye Eye exam: Present: normal appearance - ENT ENT exam: Present: mucous membranes moist - Neck Neck exam: Present: normal inspection - Respiratory Respiratory exam: Present: normal lung sounds bilaterally, respiratory distress, chest wall tenderness. Absent: wheezes, rales, rhonchi - Cardiovascular Cardiovascular Exam: Present: regular rate, normal rhythm. Absent: systolic murmur, diastolic murmur, rubs, gallop - GI/Abdominal GI/Abdominal exam: Present: soft, normal bowel sounds. Absent: distended, tenderness, guarding - Rectal Rectal exam: Present: deferred - Extremities Exam Extremities exam: Present: normal inspection - Back Exam Back exam: Present: normal inspection - Neurological Exam Neurological exam: Present: alert, oriented X3 - Psychiatric Psychiatric exam: Present: normal affect, normal mood - Skin Skin exam: Present: warm, dry, intact, normal color. Absent: rash ED Course - Reevaluation(s) Reevaluation #1: Initial evaluation done. Patient found to be hypoxic at 93. Patient will be placed on oxygen. Patient is already on the hospital monitor. Patient will have labs, EKG and CTA of the chest. 10/10/19 03:20 Reevaluation #2: Patient taken off his oxygen and he is 91%. Patient will be placed back on 3 L. Patient will be given Solu-Medrol 10/10/19 06:00 Reevaluation #3: I discussed all results with patient. I discussed plan of care with patient. Patient agrees with plan of care and admission. Patient to be admitted to the hospitalist service. 10/10/19 06:05 - Consultations Consultation #1: Hospitalist consulted for admission. Hospitalist admit patient. 10/10/19 06:05 ED Medical Decision Making - Lab Data Result diagrams: 10/10/19 03:42 03/12/20 03:42 - EKG Data -: EKG Interpreted by [facility] EKG shows normal: sinus rhythm, axis, intervals, QRS complexes, ST-T waves Rate: normal - Radiology Data Radiology results: report reviewed CTA CHEST WITH IV CONTRAST INDICATION / CLINICAL INFORMATION: P.E. PROTOCOL!!! Pt complains of chest pain with S.O.B. x 1 week. No previous history of P.E.'s Omnipaque 350 / 100ml's was used for this exam.. TECHNIQUE: Axial CT images were obtained through the chest after injection of 100 mL IV contrast. 3 plane MIP and/or 3D reconstructions were produced. All CT scans at this location are performed using CT dose reduction for [facility] by means of automated exposure control. COMPARISON: Chest radiographs, 09/12/2019 FINDINGS: PULMONARY ARTERIES: No pulmonary emboli. THORACIC AORTA: No significant abnormality. HEART: No significant abnormality. CORONARY ARTERIES: Mild coronary artery calcification is present. PLEURA: No pleural effusion. No pneumothorax. LYMPH NODES: No significant adenopathy. LUNGS: No acute air space or interstitial disease. ADDITIONAL FINDINGS: None. UPPER ABDOMEN: No acute findings. SKELETAL STRUCTURES: No significant osseous abnormality. IMPRESSION: 1. No CT evidence for pulmonary embolism. 2. No acute findings. - Medical Decision Making Patient is a 49-year-old male that presents emergency room with complaints of chest pain or shortness of breath. Chest pain x24 hours. Shortness of breath x1 week. Patient symptoms worsening. Patient's labs are unremarkable. Patient will initial evaluation found to be hypoxic and placed on oxygen. Patient had a CTA due to the symptoms of chest pain, shortness of breath and hypoxia. Patient CTA is negative for acute findings. Patient's EKG is negative for a STEMI or acute findings. Patient has labs unremarkable. Patient admitted to the hospitalist service. Patient's heart score is elevated due to his past medical history of smoking and diabetes and hyperlipidemia. - Differential Diagnosis ACS, chest pain, shortness of breath, hypoxia, pneumonitis Critical Care Time: Yes Critical care time in (mins) excluding proc time.: 35 Critical Care Time: 35 minutes ED Disposition Clinical Impression: SOB (shortness of breath), Hypoxia, Chest wall pain Chest pain Qualifiers: Chest pain type: unspecified Qualified Code(s): R07.9 - Chest pain, unspecified Disposition: 09 OP ADMIT IP TO THIS HOSP Is pt being admited?: Yes Does the pt Need Aspirin: No Condition: Critical Referrals: MATILDE CHAPPELL MD [Primary Care Provider] - 3-5 Days Time of Disposition: 06:01 Heart Score - HEART Score History: Slightly suspicious EKG: Non-specific Age: 45-65 Risk factors: > 3 risk factors or hx of atherosclerotic disease Troponin: < normal limit HEART Score: 4 REBEL score - Rebel Score Age > 65: (0) No Aspirin use within the Past 7 Days: (0) No 3 or more CAD Risk Factors: (1) Yes 2 or more Angina events in past 24 hrs: (0) No Known CAD with more than 50% Stenosis: (0) No Elevated Cardiac Markers: (0) No ST Deviation Greater than 0.5mm: (0) No REBEL Score: 1 <YOLIS SHORT - Last Filed: 10/10/19 07:37> ED Review of Systems ROS: Stated complaint: FLAVIA Other details as noted in HPI ED Course Vital Signs 10/10/19 10/10/19 10/10/19 03:07 03:15 03:18 Temperature 98.0 F Pulse Rate 67 Respiratory 23 Rate Blood Pressure 121/77 O2 Sat by Pulse 100 94 Oximetry 10/10/19 10/10/19 10/10/19 03:30 03:46 04:00 Temperature Pulse Rate 78 Respiratory 26 H 14 22 Rate Blood Pressure 123/86 123/86 127/77 O2 Sat by Pulse 94 90 Oximetry 10/10/19 10/10/19 10/10/19 04:15 04:30 04:45 Temperature Pulse Rate Respiratory Rate Blood Pressure 125/71 115/69 116/70 O2 Sat by Pulse 94 94 95 Oximetry 10/10/19 05:32 Temperature Pulse Rate Respiratory Rate Blood Pressure O2 Sat by Pulse 96 Oximetry - Reevaluation(s) Reevaluation #4: 10/10/19 07:20 Reevaluation #5: 10/10/19 07:36 Dr Danielle Horvath to admit ED Medical Decision Making - Lab Data Result diagrams: 10/10/19 03:42 10/10/19 03:42 Critical care attestation.: If time is entered above; I have spent that time in minutes in the direct care of this critically ill patient, excluding procedure time. ED Disposition Is pt being admited?: Yes Does the pt Need Aspirin: No
[2019-10-10] MEDS ORDERED: ASPIRIN 325 MG TAB PO ONE ×2 (03:34→14:00)
[2019-10-10 04:05] LABS: Basophils # (Auto) 0.1 K/mm3 (0.0-0.1); Basophils % (Auto) 0.7 % (0.0-1.8); Eosinophils # (Auto) 0.5 K/mm3 (0.0-0.4); Eosinophils % (Auto) 5.2 % (0.0-4.3); Hematocrit 43.8 % (35.5-45.6); Hemoglobin 14.9 gm/dl (11.8-15.2); Lymphocytes # (Auto) 3.5 K/mm3 (1.2-5.4); Lymphocytes % (Auto) 36.9 % (13.4-35.0); Mean Corpuscular HGB Conc 34 % (32-34); Mean Corpuscular Volume 92 fl (84-94); Monocytes % (Auto) 10.8 % (0.0-7.3); Platelet Count 265 K/mm3 (140-440); Red Blood Count 4.78 M/mm3 (3.65-5.03); Red Cell Distribution Width 13.8 % (13.2-15.2)
[2019-10-10 04:18] LABS: Alanine Aminotransferase 29 units/L (7-56); Albumin 4.2 g/dL (3.9-5); BUN/Creatinine Ratio 12; Blood Urea Nitrogen 14 mg/dL (9-20); Calcium 9.2 mg/dL (8.4-10.2); Hemolysis Index 4
[2019-10-10 04:23] LABS: Creatine Kinase MB < 1.0 ng/mL (0.0-4.0)
--- NOTE | 2019-10-10 05:49 | Cat Scan Report ---
CTA CHEST WITH IV CONTRAST INDICATION / CLINICAL INFORMATION: P.E. PROTOCOL!!! Pt complains of chest pain with S.O.B. x 1 week. No previous history of P.E.'s Omni paque 350 / 100ml's was used for this exam.. TECHNIQUE: Axial CT images were obtained through the chest after injection of 100 mL IV contrast. 3 plane MIP an d/or 3D reconstructions were produced. All CT scans at this location are performed using CT dose redu ction for [facility] by means of automated exposure control. COMPARISON: Chest radiographs, 09/12/2019 FINDINGS: PULMONARY ARTERIES: No pulmonary emboli. THORACIC AORTA: No significant abnormality. HEART: No significant abnormality. CORONARY ARTERIES: Mild coronary artery calcification is present. PLEURA: No pleural effusion. No pneumothorax. LYMPH NODES: No significant adenopathy. LUNGS: No acute air space or interstitial disease. ADDITIONAL FINDINGS: None. UPPER ABDOMEN: No acute findings. SKELETAL STRUCTURES: No significant osseous abnormality. IMPRESSION: 1. No CT evidence for pulmonary embolism. 2. No acute findings. Signer Name: Krystina Palencia MD Signed: 10/10/2019 5:44 AM Workstation Name: [id number]
[2019-10-10] MEDS ORDERED: methylPREDNISolone Sod Succinate 125 MG/2 ML INJ IV ONE ×2 (06:02→14:00)
[2019-10-10] MEDS ORDERED: ALBUTEROL 8.5 GM INHALATION IH PRN (08:32)
--- NOTE | 2019-10-10 09:02 | History and Physical Report ---
History of Present Illness Date of examination: 10/10/19 Date of admission: 10/10/19 Chief complaint: Chest pain and SOB History of present illness: Patient is a 49-year-old male with history of CVA x 2 in with no residual deficits, smoking, diabetes and hyperlipidemia that presents emergency room with complaints of shortness of breath and chest pain. Patient states his shortness of breath been going on for a week and his chest pain started yesterday. He describes his chest pain as a constant nonexertional, nonradiating, midsternal soreness which is aggravated by coughing and deep inspiration. Patient denies fever and chills. Patient denies cough. Patient denies recent travel. Pt also experienced a bout of nausea with vomiting x 2 yesterday evening. His CE in the ER normal, CT chest w/o any acute findings. He is being admitted for further evaluation and Mx. Past History Past Medical History: diabetes, hyperlipidemia, stroke Family History: father with HD and mother with DM Past surgical history: right knee replacement, back surgery Social history: + smoking 1 and 1/2ppd. denies: alcohol abuse, prescription drug abuse Review of System: Constitutional: no fever, no chills, no weight loss Ears, eyes, nose, mouth and throat: no nasal congestion, no nasal discharge, no sinus pressure, no vision change, no red eye. Neck: No neck pain or rigidity. Cardiovascular: + chest pain, no orthopnea, no palpitations, no leg swelling Respiratory: + exertional shortness of breath, no cough, + congestion, + w heezing Gastrointestinal: no abdominal pain, no nausea, no vomiting Genitourinary : no dysuria, no hematuria Musculoskeletal: no joint swelling or muscle ache Integumentary: no rash, no pruritis Neurological: no parathesias, no numbness, no tingling Endocrine: no cold or heat intolerance, no polyuria or polydipsia Hematologic/Lymphatic: no easy bruising, no easy bleeding, no gland swelling Allergic/Immunologic: no urticaria, no angioedema. Medications and Allergies Allergies Allergy/AdvReac Type Severity Reaction Status Date / Time Penicillins Allergy Unknown Verified 06/09/13 20:56 Home Medications Medication Instructions Recorded Confirmed Last Taken Type Albuterol Sulfate [Proventil Hfa] 1 puff IH Q6H PRN #1 inh 02/10/10/19 10/09/19 Rx Metformin HCl [metFORMIN] 1,000 mg PO 10/10/19 Unknown History Active Meds: Active Medications Albuterol (Proair) 1 puff IH Q6H PRN PRN Reason: Dyspnea Benzonatate (Tessalon Perles) 100 mg PO Q8HR ADRIEL Cetirizine HCl (Cetirizine) 10 mg PO DAILY ADRIEL Tramadol HCl (Ultram) 50 mg PO Q6HR PRN PRN Reason: PAIN Exam - Physical Exam Narrative exam: GENERAL: well-developed and well-nourished male lying on bed appeared to be in no discomfort. HEENT: Normocephalic. Atraumatic. No conjunctival congestion or icterus. Patient has moist mucous membranes. NECK: Supple. Trachea midline. CHEST/LUNGS: diminished BS auscultated bilaterally, breathing nonlabored. No wheezes crackles or rhonchi. HEART/CARDIOVASCULAR: Regular in rate and rhythm. S1 and S2 positive. ABDOMEN: Abdomen is soft, nontender. Patient has normal bowel sounds. SKIN: There is no rash. Warm and dry. NEURO: No focal motor deficit. Follows command. MUSCULOSKELETAL: No joint effusion or tenderness. EXTRIMITY: No edema, no cyanosis or clubbing. PSYCH: Cooperative. - Constitutional Vitals: Temp Pulse Resp BP Pulse Ox 98.0 F 60 18 97/66 98 10/10/19 03:18 10/10/19 07:38 10/10/19 07:38 10/10/19 07:38 10/10/19 07:38 Results - Labs CBC & Chem 7: 10/10/19 03:42 10/10/19 03:42 Labs: Abnormal lab results 10/10/19 10/10/19 Range/Units 03:42 03:42 Lymph % (Auto) 36.9 H (13.4-35.0) % [place] % (Auto) 10.8 H (0.0-7.3) % Eos % (Auto) 5.2 H (0.0-4.3) % [place] # 1.0 H (0.0-0.8) K/mm3 Eos # 0.5 H (0.0-0.4) K/mm3 Glucose 125 H (75-100) mg/dL Alkaline Phosphatase 131 H (35-129) units/L - Imaging and Cardiology CT scan - chest: report reviewed (no acute findings) Assessment and Plan Chest pain - r/o ACS - will admit to telemetry bed - monitor with serial CE and EKG - will place on Aspirin, statin - as needed SL NTG and iv morphin for pain - Monitor BP, add betablocker and ACEI if BP tolerates - ordered 2D echo and stress test in the am - per cardiology - cardiac diet now, NPO after midnight - provide DVT Px with lovenox Age > 65: (0) No Aspirin use within the Past 7 Days: (0) No 3 or more CAD Risk Factors: (1) Yes 2 or more Angina events in past 24 hrs: (0) No Known CAD with more than 50% Stenosis: (0) No Elevated Cardiac Markers: (0) No ST Deviation Greater than 0.5mm: (0) No REBEKA Score: 1 Dyspnea likely due to mild COPD exacerbation - considering long h/o smoking - saturating well on RA, CT chest no acute finding, afebrile - nebs as needed, will give Zithromax for possible acute bronchitis - need outpt PFT h/o smoking, counselled cessation diabetes type 2, SSI for now hyperlipidemia, start statin h/o cva - cont asp and statin
[2019-10-10] MEDS ORDERED: HYDROcodone/ACETAMINOPHEN 5-325 MG TAB PO PRN (09:08)
[2019-10-10] MEDS ORDERED: ONDANSETRON 4 MG/2 ML INJ IV PRN (09:08)
[2019-10-10] MEDS ORDERED: ACETAMINOPHEN 325 MG TAB PO PRN (09:08)
[2019-10-10] MEDS ORDERED: AZITHROMYCIN 500 MG in SODIUM CHLORIDE 0.9% 250ML 250 ML IV SCH (10:00)
[2019-10-10] MEDS ORDERED: ALBUTEROL 2.5 MG/3 ML NEBU IH PRN (10:27)
[2019-10-10] MEDS ORDERED: hydrALAZINE 20 MG/1 ML INJ IV PRN (10:30)
[2019-10-10] MEDS ORDERED: traMADol 50 MG TAB PO PRN (12:00)
[2019-10-10] MEDS: CETIRIZINE 10 MG TAB PO SCH (13:18)
[2019-10-10] MEDS: FAMOTIDINE 10 MG TAB PO SCH ×2 (13:18→21:43)
[2019-10-10] MEDS: BENZONATATE 100 MG CAP PO SCH ×2 (13:18→21:43)
[2019-10-10] MEDS: IPRATROPIUM/ALBUTEROL SULFATE 3 ML AMPUL.NEB IH SCH ×2 (13:44→21:05)
--- NOTE | 2019-10-10 14:52 | Consultation ---
History of Present Illness Consult date: 10/10/19 Requesting physician: GARRISON NEWTON Consult reason: chest pain History of present illness: The patient is a 49-year-old male with a past medical history of CVA x 2 in with no residual deficits, DM, tobacco use. He is previously unknown to our practice and does not have a regular PCP - goes to [facility]. He presented with c/o progressively worsening SOB, nonproductive cough and wheezing for the past 1 week and chest pain since last night. He describes his chest pain as a constant nonexertional, nonradiating, midsternal soreness which is aggravated by coughing and deep inspiration although is also present while at rest with normal respirations. Pt also experienced a bout of nausea with vomiting x 2 yesterday evening. Pt denies any fever, chills, palpitations, diaphoresis, dizziness or syncope. He denies any known prior cardiac issues or cardiac evaluation. He does suspect that he has "emphysema" due to chcf smoking and chronic wheezing. Past History Past Medical History: diabetes, hyperlipidemia, stroke Social history: smoking. denies: alcohol abuse, prescription drug abuse Medications and Allergies Allergies Allergy/AdvReac Type Severity Reaction Status Date / Time Penicillins Allergy Unknown Verified 06/09/13 20:56 Home Medications Medication Instructions Recorded Confirmed Last Taken Type Albuterol Sulfate [Proventil Hfa] 1 puff IH Q6H PRN #1 inh 09/13/19 10/10/19 10/09/19 Rx Metformin HCl [metFORMIN] 1,000 mg PO 10/10/19 Unknown History Active Meds: Active Medications Acetaminophen (Tylenol) 650 mg PO Q4H PRN PRN Reason: Pain MILD(1-3)/Fever >100.5/SHOOK Acetaminophen/Hydrocodone Bitart (Rock 5/325) 2 each PO Q6H PRN PRN Reason: Pain, Moderate (4-6) Albuterol (Proventil) 2.5 mg IH Q6HRT PRN PRN Reason: Shortness Of Breath Albuterol/Ipratropium (Duoneb *Not For Prn Use*) 1 ampul IH Q6HRT [facility] Last Admin: 10/10/19 13:44 Dose: 1 ampul Documented by: Benzonatate (Tessalon Perles) 100 mg PO Q8HR [facility] Last Admin: 10/10/19 13:18 Dose: 100 mg Documented by: Cetirizine HCl (Cetirizine) 10 mg PO DAILY [facility] Last Admin: 10/10/19 13:18 Dose: 10 mg Documented by: Famotidine (Pepcid) 10 mg PO BID [facility] Last Admin: 10/10/19 13:18 Dose: 10 mg Documented by: Hydralazine HCl (Apresoline) 5 mg IV Q30MIN PRN PRN Reason: Hypertension Azithromycin 500 mg/ Sodium (Chloride) 250 mls @ 250 mls/hr IV Q24HR [facility]; Protocol Last Admin: 10/10/19 10:59 Dose: 250 mls/hr Documented by: Methylprednisolone Sodium Succinate (Solu-Medrol) 40 mg IV Q12H [facility] Ondansetron HCl (Zofran) 4 mg IV Q8H PRN PRN Reason: N/V unrelieved by Reglan Tramadol HCl (Ultram) 50 mg PO Q6HR PRN PRN Reason: PAIN Review of Systems Constitutional: no weight loss, no weight gain, no fever, no chills, no sweats Ears, nose, mouth and throat: no ear pain, no nose pain, no sinus pressure, no sinus pain Respiratory: cough, shortness of breath, dyspnea on exertion, wheezing, pain on inspiration, no cough with sputum, no congestion Gastrointestinal: nausea, vomiting, no abdominal pain, no diarrhea, no constipation, no change in bowel habits, no hematemesis, no coffee ground emesis Genitourinary Male: no dysuria, no hematuria, no flank pain, no discharge, no urinary frequency, no urinary hesitancy Musculoskeletal: no neck stiffness, no neck pain, no shooting arm pain, no arm numbness/tingling, no low back pain, no shooting leg pain Integumentary: no rash, no pruritis, no redness, no sores, no wounds Neurological: no head injury, no paralysis, no weakness, no parathesias, no numbness, no tingling, no seizures, no syncope Psychiatric: no anxiety Endocrine: no cold intolerance, no heat intolerance Hematologic/Lymphatic: no easy bruising, no easy bleeding Allergic/Immunologic: no urticaria Physical Examination Vital Signs Pulse Ox 100 10/10/19 03:07 General appearance: no acute distress HEENT: Positive: PERRL, Normocephaly, Mucus Membranes Moist Neck: Positive: neck supple, trachea midline Cardiac: Positive: Reg Rate and Rhythm, S1/S2 Lungs: Positive: Decreased Breath Sounds, Wheezes (fine, scattered) Neuro: Positive: Grossly Intact Abdomen: Negative: Tender Musculoskeletal: No Pain Extremities: Absent: edema Results 10/10/19 03:42 10/10/19 03:42 Cardiac Enzymes 10/10/19 10/10/19 Range/Units 03:42 03:42 AST 25 (5-40) units/L CK-MB (CK-2) < 1.0 (0.0-4.0) ng/mL CBC 10/10/19 Range/Units 03:42 WBC 9.4 (4.5-11.0) K/mm3 RBC 4.78 (3.65-5.03) M/mm3 Hgb 14.9 (11.8-15.2) gm/dl Hct 43.8 (35.5-45.6) % Plt Count 265 (140-440) K/mm3 Lymph # 3.5 (1.2-5.4) K/mm3 Love # 1.0 H (0.0-0.8) K/mm3 Eos # 0.5 H (0.0-0.4) K/mm3 Baso # 0.1 (0.0-0.1) K/mm3 Comprehensive Metabolic Panel 10/10/19 Range/Units 03:42 Sodium 139 (137-145) mmol/L Potassium 4.1 (3.6-5.0) mmol/L Chloride 100.3 (98-107) mmol/L Carbon Dioxide 25 (22-30) mmol/L BUN 14 (9-20) mg/dL Creatinine 1.2 (0.8-1.5) mg/dL Glucose 125 H (75-100) mg/dL Calcium 9.2 (8.4-10.2) mg/dL AST 25 (5-40) units/L ALT 29 (7-56) units/L Alkaline Phosphatase 131 H (35-129) units/L Total Protein 6.9 (6.3-8.2) g/dL Albumin 4.2 (3.9-5) g/dL - Imaging and Cardiology Echo: pending EKG: report reviewed, image reviewed EKG interpretations - Telemetry EKG Rhythm: Sinus Rhythm - EKG Sinus rhythms and dysrhythmias: sinus rhythm Assessment and Plan Agree with present cardiac management. Chest CTA negative. ECG with NSR, no acute findings, Christina negative for AMI x 1 set. Cont to trend Christina. Obtain echo. Plan for lexiscan MPI stress test in AM. NPO after MN. The patient has been seen in conjunction with Dr. Gifford who agrees with the assessment and plan of care. - Patient Problems (1) Chest pain Current Visit: Yes Status: Acute Qualifiers: Chest pain type: unspecified Qualified Code(s): R07.9 - Chest pain, unspecified (2) COPD exacerbation Current Visit: Yes Status: Suspected (3) Diabetes Current Visit: Yes Status: Chronic (4) History of CVA (cerebrovascular accident) Current Visit: Yes Status: Chronic (5) Tobacco use Current Visit: Yes Status: Chronic
[2019-10-10] MEDS: AZITHROMYCIN 250 MG TAB PO SCH (16:57)
[2019-10-10] MEDS: methylPREDNISolone Sod Succinate 40 MG/1 ML INJ IV SCH (16:59)
[2019-10-11] MEDS ORDERED: NITROGLYCERIN 0.4 MG TAB SUBL SL PRN (00:17)
[2019-10-11] MEDS: IPRATROPIUM/ALBUTEROL SULFATE 3 ML AMPUL.NEB IH SCH ×4 (03:14→19:45)
[2019-10-11] MEDS: methylPREDNISolone Sod Succinate 40 MG/1 ML INJ IV SCH (06:12)
[2019-10-11] MEDS: BENZONATATE 100 MG CAP PO SCH ×2 (06:12→18:50)
[2019-10-11] MEDS ORDERED: REGADENOSON 0.4 MG/5 ML INJ IV ONE (08:13)
[2019-10-11 08:47] LABS: Chol/HDL Ratio 6.66 %
[2019-10-11] MEDS ORDERED: ASPIRIN EC 325 MG TAB PO SCH (10:00)
--- NOTE | 2019-10-11 10:30 | Treadmill Report ---
LEXISCAN STRESS TEST REPORT REASON FOR STUDY: Chest pain. STRESS TEST PROTOCOL: The patient received 0.4 mg of Lexiscan intravenously over 10 seconds. Tc-99m Tetrofosmin was subsequently injected. BASELINE ECG: Normal sinus rhythm. LEXISCAN ECG: No ischemic changes. No chest pain. No arrhythmias. IMPRESSION: Electrocardiographically negative stress test. Nuclear imaging report to follow. JOB# [id number] TEVIN/NTS
[2019-10-11 10:33] VITALS: BP 118/70
--- NOTE | 2019-10-11 10:46 | Progress Note ---
Assessment and Plan tte reviewed - EF 55-60%, no significant abnormalities. Proceed with lexiscan MPI stress. Await findings. The patient has been seen in conjunction with Dr. Gifford who agrees with the assessment and plan of care. - Patient Problems (1) Chest pain Current Visit: Yes Status: Acute Qualifiers: Chest pain type: unspecified Qualified Code(s): R07.9 - Chest pain, unspecified (2) COPD exacerbation Current Visit: Yes Status: Suspected (3) Diabetes Current Visit: Yes Status: Chronic (4) History of CVA (cerebrovascular accident) Current Visit: Yes Status: Chronic (5) Tobacco use Current Visit: Yes Status: Chronic Subjective Date of service: 10/11/19 Principal diagnosis: cp Interval history: pt for stress test today, had a bout of chest pain overnight. in SR on tele. Objective Last Vital Signs Temp 97.8 F 10/11/19 05:49 Pulse 73 10/11/19 05:49 Resp 18 10/11/19 05:49 BP 118/70 10/11/19 10:02 Pulse Ox 91 10/11/19 05:49 - Physical Examination General: No Apparent Distress HEENT: Positive: PERRL, Normocephaly, Mucus Membranes Moist Neck: Positive: neck supple, trachea midline Cardiac: Positive: Reg Rate and Rhythm, S1/S2 Lungs: Positive: Decreased Breath Sounds Neuro: Positive: Grossly Intact Abdomen: Negative: Tender Musculoskeletal: No Pain Extremities: Absent: edema - Labs and Meds Lipids 10/11/19 Range/Units 07:47 Triglycerides 104 (2-149) mg/dL Cholesterol 240 H (50-199) mg/dL HDL Cholesterol 36 L (40-59) mg/dL Cholesterol/HDL Ratio 6.66 % - Imaging and Cardiology EKG: report reviewed, image reviewed Echo: pending - EKG Sinus rhythms and dysrhythmias: sinus rhythm
[2019-10-11] MEDS: CETIRIZINE 10 MG TAB PO SCH (11:25)
[2019-10-11] MEDS: AZITHROMYCIN 250 MG TAB PO SCH (11:25)
[2019-10-11] MEDS: FAMOTIDINE 10 MG TAB PO SCH (11:25)
--- NOTE | 2019-10-11 12:47 | Discharge Summary ---
Providers - Providers Date of Admission: 10/10/19 07:36 Date of discharge: 10/11/19 Attending physician: JADA KELLY 10/10/19 14:09 Consult to Physician [CONS] Routine Comment: Consulting Provider: LILIANA WATERMAN Physician Instructions: Reason For Exam: chest pain Primary care physician: [facility], [place] Hospitalization Condition: Critical Pertinent studies: CTA negative for pulmonary embolism. Stress test shows small nonreversible defect to be treated medically. Hospital course: Patient 49-year-old male with a history of CVA x2, diabetes, hypertension, hyperlipidemia and tobacco abuse. Presents with a one-week episode of shortness of breath persistent cough right-sided chest pain x1 week. Patient states symptoms progressively got worse and decided to come in for further evaluation. Upon evaluation patient found to have emphysema on physical exam. CT scan was negative for PE. Patient was ruled out via negative cardiac isoenzymes. Patient also had echocardiogram which showed ejection fraction of 60%. Also stress test small nonreversible defect. To be treated with medical management. Patient also to follow-up with Dr. Sugar sherwood 1 week. Also [facility] 1 week. Will be given medications to go home for COPD including prednisone taper antibiotics and albuterol MDI. Disposition: DC-01 TO HOME OR SELFCARE - Discharge Diagnoses (1) Chest pain Status: Acute Qualifiers: Chest pain type: unspecified Qualified Code(s): R07.9 - Chest pain, unspecified Comment: Right-sided chest pain noncardiac secondary to cough and COPD exacerbation. Patient advised to stop smoking. Not willing to try at this time. (2) SOB (shortness of breath) Status: Acute Comment: Resolved secondary to COPD. (3) Diabetes Status: Chronic Comment: Stable continue metformin upon discharge. (4) Tobacco use Status: Chronic Comment: This is important patient stop smoking. Patient states will follow up with the [facility] for evaluation of stop smoking emotionally does not feel he is ready at this time. Patient explained this is a Taylor effort patient and this is why she is in pain and COPD emphysema will continue to get worse. (5) COPD exacerbation Status: Suspected (6) Acute bronchitis Status: Acute Comment: Azithromycin and prednisone taper. Patient be informed to where his blood sugars may increase somewhat for period of time and should follow-up with [facility]. (7) COPD (chronic obstructive pulmonary disease) with chronic bronchitis Status: Acute Core Measure Documentation - Palliative Care Palliative Care/ Comfort Measures: Not Applicable - Core Measures Any of the following diagnoses?: none Exam - Constitutional Vitals: Temp Pulse Resp BP Pulse Ox 97.8 F 73 18 118/70 91 10/11/19 05:49 10/11/19 05:49 10/11/19 05:49 10/11/19 10:02 10/11/19 05:49 General appearance: Present: no acute distress, well-nourished - EENT Eyes: Present: PERRL ENT: hearing intact, clear oral mucosa - Neck Neck: Present: supple, normal ROM - Respiratory Respiratory effort: normal Respiratory: bilateral: wheezing - Cardiovascular Heart Sounds: Present: S1 & S2. Absent: rub, click - Extremities Extremities: pulses symmetrical, No edema Peripheral Pulses: within normal limits - Abdominal General gastrointestinal: Present: soft, non-tender, non-distended, normal bowel sounds Male genitourinary: Present: normal - Integumentary Integumentary: Present: clear, warm, dry - Musculoskeletal Musculoskeletal: gait normal, strength equal bilaterally - Psychiatric Psychiatric: appropriate mood/affect, intact judgment & insight - Neurologic Neurologic: CNII-XII intact, moves all extremities Plan Activity: no restrictions Weight Bearing Status: Full Weight Bearing Diet: diabetic, low carbohydrate Follow up with: LUCY ARANDADUCKWATER MD CRYSTAL [Primary Care Provider] - 3-5 Days Prescriptions: predniSONE [Deltasone] 10 mg PO QDAY #30 tablet Metformin HCl [metFORMIN] 1,000 mg PO BID #60 HYDROcodone/APAP 5-325 [[place] 5-325 mg TAB] 2 each PO Q6H PRN #10 tablet PRN Reason: Pain, Moderate (4-6) Albuterol Sulfate [Proventil Hfa] 1 puff IH Q6H PRN #1 inh PRN Reason: Dyspnea Benzonatate [Tessalon Perles] 100 mg PO Q8HR #14 capsule traMADoL [Ultram 50 MG tab] 50 mg PO Q6HR PRN #20 tablet PRN Reason: PAIN Azithromycin [Zithromax TAB] 500 mg PO QDAY #7 tablet
[2019-10-11] MEDS ORDERED: predniSONE 10 MG TAB PO SCH (13:00)
[2019-10-11] MEDS ORDERED: AZITHROMYCIN 250 MG TAB PO SCH (13:00)
--- NOTE | 2019-10-11 13:08 | Event Note ---
Date: 10/11/19 S/p lexiscan MPI stress test this AM which showed small area of inferior reversibility, normal EF. Initiate ASA 81, statin, lopressor. Consider addition of oral nitrates if BPs permit. Currently stable cardiac status. Pt with no active chest pain. He may be discharged from cardiology standpoint and can consider [facility] as OP if chest pain recurs despite optimal medical therapy. Recommend follow up in our office with Dr. Waterman within 1-2 weeks of discharge ([phone]). Savana MEJIA NP / DR. WATERMAN
--- NOTE | 2019-10-11 14:19 | Treadmill Report ---
THALLIUM REPORT REASON FOR STUDY: Chest pain. IMAGING PROTOCOL: The patient received 10 mCi of Tc-99m Tetrofosmin for rest imaging and 28 mCi of Tc-99m Tetrofosmin for stress imaging. Imaging for all procedures was completed 30-90 minutes following the initial injection of Technetium 99m Tetrofosmin. SPECT imaging in the 180 degree arc was performed in the right anterior oblique projection. Computerized reconstruction of the images was performed for analysis. NUCLEAR IMAGING RESULTS: Normal left ventricular cavity size with no change from stress to rest. Distribution of radionuclide within the left ventricle revealed a small area of photo-induction involving the inferior wall. The degree of photo-induction is moderate. Rest imaging showed complete improvement in this defect. There is also a small area of photo-induction involving the inferoapical region. The degree of photo-induction is moderate. Rest imaging showed worsening of the defect, suggesting that it is probably artifactual. Gated SPECT imaging revealed normal global LV systolic function with no significant wall motion abnormalities. The calculated left ventricular ejection fraction is 68%. IMPRESSION: Small reversible inferior defect. Normal global left ventricular systolic function with no significant wall motion abnormalities. Ejection fraction: 68%. These findings suggest mild reversible ischemia in the right coronary artery territory. No evidence of prior infarction. JOB# [id number] TEVIN/TEENA
[2019-10-11] MEDS ORDERED: ENOXAPARIN 40 MG/0.4 ML INJ SUB-Q SCH (22:00)
[2019-10-11] MEDS ORDERED: METOPROLOL TARTRATE 25 MG TAB PO SCH (22:00)
[2019-10-12] MEDS ORDERED: ASPIRIN 81 MG TAB CHEW PO SCH (10:00)
== END 2019-10-11 20:40 | disposition home or self-care (01) ==
LOC: ED 03:01 → 4A 07:36 → 3A 10:20
PROVIDERS: ADMIT Internal Medicine; ATTEND Internal Medicine
DX: J44.1 Chronic obstructive pulmonary disease with (acute) exacerbation (principal); J44.0 Chronic obstructive pulmonary disease with (acute) lower respiratory infection; J20.9 Acute bronchitis, unspecified; E11.9 Type 2 diabetes mellitus without complications; E78.5 Hyperlipidemia, unspecified; Z86.73 Personal history of transient ischemic attack (TIA), and cerebral infarction without residual deficits; F17.200 Nicotine dependence, unspecified, uncomplicated; Z71.6 Tobacco abuse counseling; Z79.84 Long term (current) use of oral hypoglycemic drugs; Z79.899 Other long term (current) drug therapy; Z88.0 Allergy status to penicillin
CPT/HCPCS: 36415; 71275; 78452; 80053; 80061; 82550; 82553; 82962; 83036; 83880; 84484; 85025; 93005; 93010; 93017; 93306; 94640; 94760; 96365; 96375; 96376; 99291; 99406; A9502; G0378; J0456; J2785; J2920; J2930; J7050; J7512; Q9967

== ENCOUNTER 2019-10-14 12:06 | Emergency (ER) | payer SELFPAY ==
[2019-10-14] MEDS ORDERED: SODIUM CHLORIDE 0.9% 1000 ML 1,000 ML IV ONE (12:29)
--- NOTE | 2019-10-14 12:29 | Emergency Department Report ---
HPI - General Chief Complaint: Altered Mental Status Time Seen by Provider: 10/14/19 12:25 - HPI HPI: 49-year-old male presents to the emergency department via EMS from home with complaint of altered mental status and generalized weakness. The patient was recently admitted to this hospital on 10/09 for chest pain, shortness of breath and coughing. Patient had a negative stress test, negative CT angiography, and ultimately was discharged home with COPD and acute bronchitis, along with multiple medications including antibiotics. Unknown if the patient has been taking these medications. He has a past medical history of CVA x2, diabetes, asthma and tobacco abuse. Currently the patient is confused and/or a poor historian. ED Past Medical Hx - Past Medical History Previous Medical History?: Yes Hx CVA: Yes (2 "mini strokes", no deficits 1999) Hx Diabetes: Yes Hx Asthma: Yes - Surgical History Past Surgical History?: Yes Additional Surgical History: right knee surg x6, pylonidal cyst surg x2, cervical fusion with bone graft from left hip 2 weeks ago - Social History Smoking Status: Unknown if ever smoked Substance Use Type: None - Medications Home Medications: Home Medications Medication Instructions Recorded Confirmed Last Taken Type Acetaminophen [Acetaminophen TAB] 650 mg PO Q4H PRN tablet 10/11/19 Unknown Rx Albuterol Sulfate [Proventil Hfa] 1 puff IH Q6H PRN #1 inh 10/11/19 Unknown Rx Aspirin [Aspirin BABY CHEW TAB] 81 mg PO QDAY #30 tab.chew 10/11/19 Unknown Rx AtorvaSTATin [Lipitor] 20 mg PO QHS #30 tab 10/11/19 Unknown Rx Azithromycin [Zithromax TAB] 500 mg PO QDAY tablet 10/11/19 Unknown Rx Azithromycin [Zithromax TAB] 500 mg PO QDAY #7 tablet 10/11/19 Unknown Rx Benzonatate [Tessalon Perles] 100 mg PO Q8HR #14 capsule 10/11/19 Unknown Rx HYDROcodone/APAP 5-325 [[place] 2 each PO Q6H PRN #10 tablet 10/11/19 Unknown Rx 5-325 mg TAB] Metformin HCl [metFORMIN] 1,000 mg PO BID #60 10/11/19 Unknown Rx Metoprolol [Lopressor TAB] 25 mg PO BID #30 tablet 10/11/19 Unknown Rx Metoprolol [Lopressor TAB] 25 mg PO BID #60 tablet 10/11/19 Unknown Rx predniSONE [Deltasone] 10 mg PO QDAY #30 tablet 10/11/19 Unknown Rx traMADoL [Ultram 50 MG tab] 50 mg PO Q6HR PRN #20 tablet 10/11/19 Unknown Rx ED Review of Systems ROS: Stated complaint: AMS/WEAKNESS Other details as noted in HPI Comment: Unobtainable due to pts medical conditions Physical Exam - Physical Exam Vital Signs: Vital Signs 10/14/19 12:12 Temperature 98.0 F Pulse Rate 61 Respiratory 16 Rate Blood Pressure 141/85 O2 Sat by Pulse 99 Oximetry Physical Exam: GENERAL: The patient is well-developed well-nourished. HENT: Normocephalic. Atraumatic. Patient has moist mucous membranes. EYES: Extraocular motions are intact. Pupils equal reactive to light bilaterally. NECK: Supple. Trachea is midline. CHEST/LUNGS: Clear to auscultation. There is no respiratory distress noted. HEART/CARDIOVASCULAR: Regular. There is no tachycardia. ABDOMEN: Abdomen is soft, nontender. Patient has normal bowel sounds. There is no abdominal distention. SKIN: Skin is warm and dry. NEURO: The patient is awake but confused. AAO x1 to person but not place or time. Follows some commands. Withdraws from painful stimuli. MUSCULOSKELETAL: There is no tenderness or deformity. There is no limitation range of motion. There is no evidence of acute injury. ED Course Vital Signs 10/14/19 12:12 Temperature 98.0 F Pulse Rate 61 Respiratory 16 Rate Blood Pressure 141/85 O2 Sat by Pulse 99 Oximetry ED Medical Decision Making - Lab Data Result diagrams: 10/14/19 12:38 10/14/19 12:38 - EKG Data -: EKG Interpreted by Me EKG shows normal: sinus rhythm, axis, intervals, QRS complexes, ST-T waves Rate: bradycardia (58 bpm) - EKG Data When compared to previous EKG there are: no significant change Interpretation: unchanged when compared t (10/10/19) - Radiology Data Radiology results: report reviewed, image reviewed interpreted by me: Chest x-ray does not show any acute process. There are no pleural effusions, obvious pneumonia and there is no pneumothorax. CT HEAD WITHOUT CONTRAST INDICATION / CLINICAL INFORMATION: Syncopal episode. Altered Mental Status. TECHNIQUE: All CT scans at this location are performed using CT dose reduction for ALARA by means of automated exposure control. COMPARISON: None available. FINDINGS: HEMORRHAGE: No evidence of intracranial hemorrhage or extra-axial fluid collection. EXTRA-AXIAL SPACES: Cortical sulci, sylvian fissures and basilar cisterns have an unremarkable appearance. VENTRICULAR SYSTEM: The ventricular system is of normal size and configuration. CEREBRAL PARENCHYMA: No areas of abnormal brain parenchymal attenuation are identified. There is no indication of recent infarction. MIDLINE SHIFT OR HERNIATION: There is no mass effect. CEREBELLUM / BRAINSTEM: Brainstem and cerebellum have an unremarkable appearance. INTRACRANIAL VESSELS:No abnormalities are identified on this noncontrast head CT. ORBITS: visualized portions of the orbits have an unremarkable appearance. SOFT TISSUES of HEAD: No significant abnormality. CALVARIUM: Evaluation of bone windows reveals no abnormalities. PARANASAL SINUSES / MASTOID AIR CELLS: An air-fluid levels present in the left maxillary sinus. There is opacification of multiple left- sided ethmoid air cells. Opacification of left frontal sinus is observed. These findings indicate the presence of sinusitis secondary to obstruction of the left OM U. Additionally noted is what appears to be a retention cyst or polyp at the base of the right maxillary sinus. Evaluation of the mastoid air cells is remarkable for opacification of multiple mastoid air cells. There is fluid or debris in the aditus ad antrum and epitympanic recess. Possibility of left-sided mastoiditis and otitis media should be considered. IMPRESSION: 1. Left maxillary, ethmoid and frontal sinusitis. 2. Opacification of multiple left- sided mastoid air cells and of the epitympanic region of the middle ear cavity. Consider possible mastoiditis and otitis media. 3. No intracranial abnormality. - Medical Decision Making This patient presents to the emergency department with altered mental status. The patient is AAO x1 at the time of my initial examination and is only oriented to person. An EKG was done that does not show any signs of ST elevation VT or dysrhythmia. Labs have thus far been unremarkable including CBC, metabolic panel, TSH, ammonia, blood alcohol level, and urinalysis. The patient is awaiting a CT scan of the head without contrast. This patient has been discussed with the admitting hospitalist, Dr. Barrientos, who will follow the CT results. It has been my recommendation for admission for his altered mental status and Dr. Barrientos will follow and either admit this patient or assist with further disposition. In reviewing the rest of this patient's ED course and his chart, it appears the patient has left AGAINST MEDICAL ADVICE. It must be noted that I was not on shift and at this hospital when this occurred. During my examinations the patient was AAO x1 and did not have sufficient decision-making capacity to leave AMA. - Differential Diagnosis TIA, CVA, hyperammonemia, UTI Critical Care Time: No Critical care attestation.: If time is entered above; I have spent that time in minutes in the direct care of this critically ill patient, excluding procedure time. ED Disposition Clinical Impression: History of CVA (cerebrovascular accident) Altered mental status Qualifiers: Altered mental status type: unspecified Qualified Code(s): R41.82 - Altered mental status, unspecified Disposition: DC-09 OP ADMIT IP TO THIS HOSP Is pt being admited?: Yes Condition: Serious Referrals: MATILDE CHAPPELL MD [Primary Care Provider] - 3-5 Days Time of Disposition: 15:00
[2019-10-14 12:52] LABS: Hematocrit 44.4 % (35.5-45.6); Hemoglobin 14.9 gm/dl (11.8-15.2); Mean Corpuscular HGB Conc 34 % (32-34); Mean Corpuscular Volume 92 fl (84-94); Platelet Count 266 K/mm3 (140-440); Red Blood Count 4.85 M/mm3 (3.65-5.03); Red Cell Distribution Width 13.8 % (13.2-15.2)
[2019-10-14 13:12] VITALS: BP 136/82
[2019-10-14 13:18] LABS: Alanine Aminotransferase 39 units/L (7-56); BUN/Creatinine Ratio 18; Blood Urea Nitrogen 18 mg/dL (9-20); Hemolysis Index 5
--- NOTE | 2019-10-14 13:35 | XRay Report ---
CHEST 1 VIEW INDICATION: Altered mental status. COMPARISON: 09/12/2019 FINDINGS: Support devices: None. Heart: Normal. Lungs/Pleura: No acute pulmonary or pleural findings. IMPRESSION: 1. No acute findings. Signer Name: Gil Jackson MD Signed: 10/14/2019 1:31 PM Workstation Name: [id number]
[2019-10-14 14:17] LABS: Bilirubin,Urine NEG (Negative); Blood,Urine NEG (Negative); Color,Urine Straw (Yellow); Mucus,Urine FEW /HPF; Protein,Urine <15 mg/dL mg/dL (Negative); Urobilinogen,Urine < 2.0 mg/dL (<2.0)
[2019-10-14 14:32] LABS: Basophils % (Manual) 0 % (0.0-1.8); Eosinophils % (Manual) 0 % (0.0-4.3); Platelet Estimate Consistent w Auto; Total Cells Counted 100
--- NOTE | 2019-10-14 15:41 | Cat Scan Report ---
CT HEAD WITHOUT CONTRAST INDICATION / CLINICAL INFORMATION: Syncopal episode. Altered Mental Status. TECHNIQUE: All CT scans at this location are performed using CT dose reduction for ALARA by means of automated e xposure control. COMPARISON: None available. FINDINGS: HEMORRHAGE: No evidence of intracranial hemorrhage or extra-axial fluid collection. EXTRA-AXIAL SPACES: Cortical sulci, sylvian fissures and basilar cisterns have an unremarkable appear ance. VENTRICULAR SYSTEM: The ventricular system is of normal size and configuration. CEREBRAL PARENCHYMA: No areas of abnormal brain parenchymal attenuation are identified. There is no i ndication of recent infarction. MIDLINE SHIFT OR HERNIATION: There is no mass effect. CEREBELLUM / BRAINSTEM: Brainstem and cerebellum have an unremarkable appearance. INTRACRANIAL VESSELS:No abnormalities are identified on this noncontrast head CT. ORBITS: visualized portions of the orbits have an unremarkable appearance. SOFT TISSUES of HEAD: No significant abnormality. CALVARIUM: Evaluation of bone windows reveals no abnormalities. PARANASAL SINUSES / MASTOID AIR CELLS: An air-fluid levels present in the left maxillary sinus. There is opacification of multiple left-sided ethmoid air cells. Opacification of left frontal sinus is ob served. These findings indicate the presence of sinusitis secondary to obstruction of the left OM U. Additionally noted is what appears to be a retention cyst or polyp at the base of the right maxillary sinus. Evaluation of the mastoid air cells is remarkable for opacification of multiple mastoid air c ells. There is fluid or debris in the aditus ad antrum and epitympanic recess. Possibility of left-si ded mastoiditis and otitis media should be considered. IMPRESSION: 1. Left maxillary, ethmoid and frontal sinusitis. 2. Opacification of multiple left-sided mastoid air cells and of the epitympanic region of the middle ear cavity. Consider possible mastoiditis and otitis media. 3. No intracranial abnormality. Signer Name: Phi Bustamante MD Signed: 10/14/2019 3:37 PM Workstation Name: [id number]
--- NOTE | 2019-10-15 00:03 | History and Physical Report ---
History of Present Illness Date of examination: 10/14/19 Date of admission: 10/14/19 Chief complaint: AMS 1 day History of present illness: 49-year-old male presents to the emergency department via EMS from home with complaint of altered mental status and generalized weakness. The patient was recently admitted to this hospital on 10/09 for chest pain, shortness of breath and coughing. Patient had a negative stress test, negative CT angiography, and ultimately was discharged home with COPD and acute bronchitis, along with multiple medications including antibiotics. Unknown if the patient has been taking these medications. He has a past medical history of CVA x2, diabetes, asthma and tobacco abuse. Currently the patient is confused and/or a poor historian. Past Medical History Previous Medical History?: Yes CVA: Yes (2 "mini strokes", no deficits 1999) Diabetes Asthma: Yes Surgical History Past Surgical History?: Yes Additional Surgical History: right knee surg x6, pylonidal cyst surg x2, cervical fusion with bone graft from left hip 2 weeks ago Social History Smoking Status: Unknown if ever smoked Substance Use Type: None Family History Htn - Medications Home Medications: Home Medications Medication Instructions Recorded Confirmed Last Taken Type Acetaminophen [Acetaminophen TAB] 650 mg PO Q4H PRN tablet 10/11/19 Unknown Rx Albuterol Sulfate [Proventil Hfa] 1 puff IH Q6H PRN #1 inh 10/11/19 Unknown Rx Aspirin [Aspirin BABY CHEW TAB] 81 mg PO QDAY #30 tab.chew 10/11/19 Unknown Rx AtorvaSTATin [Lipitor] 20 mg PO QHS #30 tab 10/11/19 Unknown Rx Azithromycin [Zithromax TAB] 500 mg PO QDAY tablet 10/11/19 Unknown Rx Azithromycin [Zithromax TAB] 500 mg PO QDAY #7 tablet 10/11/19 Unknown Rx Benzonatate [Tessalon Perles] 100 mg PO Q8HR #14 capsule 10/11/19 Unknown Rx HYDROcodone/APAP 5-325 [[place] 2 each PO Q6H PRN #10 tablet 10/11/19 Unknown Rx 5-325 mg TAB] Metformin HCl [metFORMIN] 1,000 mg PO BID #60 10/11/19 Unknown Rx Metoprolol [Lopressor TAB] 25 mg PO BID #30 tablet 10/11/19 Unknown Rx Metoprolol [Lopressor TAB] 25 mg PO BID #60 tablet 10/11/19 Unknown Rx predniSONE [Deltasone] 10 mg PO QDAY #30 tablet 10/11/19 Unknown Rx traMADoL [Ultram 50 MG tab] 50 mg PO Q6HR PRN #20 tablet 10/11/19 Unknown Rx Review of Systems ROS: Stated complaint: AMS/WEAKNESS Other details as noted in HPI Comment: Unobtainable due to pts medical conditions Medications and Allergies Allergies Allergy/AdvReac Type Severity Reaction Status Date / Time Penicillins Allergy Unknown Verified 06/09/13 20:56 Home Medications Medication Instructions Recorded Confirmed Last Taken Type Acetaminophen [Acetaminophen TAB] 650 mg PO Q4H PRN tablet 10/11/19 Unknown Rx Albuterol Sulfate [Proventil Hfa] 1 puff IH Q6H PRN #1 inh 10/11/19 Unknown Rx Aspirin [Aspirin BABY CHEW TAB] 81 mg PO QDAY #30 tab.chew 10/11/19 Unknown Rx AtorvaSTATin [Lipitor] 20 mg PO QHS #30 tab 10/11/19 Unknown Rx Azithromycin [Zithromax TAB] 500 mg PO QDAY tablet 10/11/19 Unknown Rx Azithromycin [Zithromax TAB] 500 mg PO QDAY #7 tablet 10/11/19 Unknown Rx Benzonatate [Tessalon Perles] 100 mg PO Q8HR #14 capsule 10/11/19 Unknown Rx HYDROcodone/APAP 5-325 [[place] 2 each PO Q6H PRN #10 tablet 10/11/19 Unknown Rx 5-325 mg TAB] Metformin HCl [metFORMIN] 1,000 mg PO BID #60 10/11/19 Unknown Rx Metoprolol [Lopressor TAB] 25 mg PO BID #30 tablet 10/11/19 Unknown Rx Metoprolol [Lopressor TAB] 25 mg PO BID #60 tablet 10/11/19 Unknown Rx predniSONE [Deltasone] 10 mg PO QDAY #30 tablet 10/11/19 Unknown Rx traMADoL [Ultram 50 MG tab] 50 mg PO Q6HR PRN #20 tablet 10/11/19 Unknown Rx Exam - Constitutional Vitals: Temp Pulse Resp BP Pulse Ox 98.0 F 59 L 20 136/82 97 10/14/19 12:12 10/14/19 15:30 10/14/19 15:30 10/14/19 15:30 10/14/19 13:30 General appearance: Present: no acute distress, well-nourished - EENT Eyes: Present: PERRL ENT: hearing intact, clear oral mucosa - Neck Neck: Present: supple, normal ROM - Respiratory Respiratory effort: normal Respiratory: bilateral: CTA - Cardiovascular Heart rate: 52 Rhythm: regular Heart Sounds: Present: S1 & S2. Absent: rub, click - Extremities Extremities: no ischemia, pulses intact, pulses symmetrical, No edema Peripheral Pulses: within normal limits - Abdominal General gastrointestinal: Present: soft, non-tender, non-distended, normal bowel sounds Male genitourinary: Present: normal - Rectal Rectal Exam: deferred - Integumentary Integumentary: Present: clear, warm, dry - Musculoskeletal Musculoskeletal: gait normal, strength equal bilaterally - Psychiatric Psychiatric: appropriate mood/affect, intact judgment & insight - Neurologic Neurologic: CNII-XII intact, moves all extremities - Allied Health Allied health notes reviewed: nursing, case management REBEL score - Rebel Score Age > 65: (0) No Aspirin use within the Past 7 Days: (0) No 3 or more CAD Risk Factors: (1) Yes 2 or more Angina events in past 24 hrs: (0) No Known CAD with more than 50% Stenosis: (0) No Elevated Cardiac Markers: (0) No ST Deviation Greater than 0.5mm: (0) No REBEL Score: 1 Results - Labs CBC & Chem 7: 10/14/19 12:38 10/14/19 12:38 Labs: Laboratory Last Values WBC 16.7 K/mm3 (4.5-11.0) H 10/14/19 12:38 RBC 4.85 M/mm3 (3.65-5.03) 10/14/19 12:38 Hgb 14.9 gm/dl (11.8-15.2) 10/14/19 12:38 Hct 44.4 % (35.5-45.6) 10/14/19 12:38 MCV 92 fl (84-94) 10/14/19 12:38 MCH 31 pg (28-32) 10/14/19 12:38 MCHC 34 % (32-34) 10/14/19 12:38 RDW 13.8 % (13.2-15.2) 10/14/19 12:38 Plt Count 266 K/mm3 (140-440) 10/14/19 12:38 Add Manual Diff Complete 10/14/19 12:38 Total Counted 100 10/14/19 12:38 Seg Neuts % (Manual) 68.0 % (40.0-70.0) 10/14/19 12:38 Band Neutrophils % 0 % 10/14/19 12:38 Lymphocytes % (Manual) 23.0 % (13.4-35.0) 10/14/19 12:38 Reactive Lymphs % (Man) 0 % 10/14/19 12:38 Monocytes % (Manual) 9.0 % (0.0-7.3) H 10/14/19 12:38 Eosinophils % (Manual) 0 % (0.0-4.3) 10/14/19 12:38 Basophils % (Manual) 0 % (0.0-1.8) 10/14/19 12:38 Metamyelocytes % 0 % 10/14/19 12:38 Myelocytes % 0 % 10/14/19 12:38 Promyelocytes % 0 % 10/14/19 12:38 Blast Cells % 0 % 10/14/19 12:38 Nucleated RBC % Not Reportable 10/14/19 12:38 Seg Neutrophils # Man 11.4 K/mm3 (1.8-7.7) H 10/14/19 12:38 Band Neutrophils # 0.0 K/mm3 10/14/19 12:38 Lymphocytes # (Manual) 3.8 K/mm3 (1.2-5.4) 10/14/19 12:38 Abs React Lymphs (Man) 0.0 K/mm3 10/14/19 12:38 Monocytes # (Manual) 1.5 K/mm3 (0.0-0.8) H 10/14/19 12:38 Eosinophils # (Manual) 0.0 K/mm3 (0.0-0.4) 10/14/19 12:38 Basophils # (Manual) 0.0 K/mm3 (0.0-0.1) 10/14/19 12:38 Metamyelocytes # 0.0 K/mm3 10/14/19 12:38 Myelocytes # 0.0 K/mm3 10/14/19 12:38 Promyelocytes # 0.0 K/mm3 10/14/19 12:38 Blast Cells # 0.0 K/mm3 10/14/19 12:38 WBC Morphology Not Reportable 10/14/19 12:38 Hypersegmented Neuts Not Reportable 10/14/19 12:38 Hyposegmented Neuts Not Reportable 10/14/19 12:38 Hypogranular Neuts Not Reportable 10/14/19 12:38 Smudge Cells Not Reportable 10/14/19 12:38 Toxic Granulation Not Reportable 10/14/19 12:38 Toxic Vacuolation Not Reportable 10/14/19 12:38 Dohle Bodies Not Reportable 10/14/19 12:38 Pelger-Huet Anomaly Not Reportable 10/14/19 12:38 Margot Rods Not Reportable 10/14/19 12:38 Platelet Estimate Consistent w auto 10/14/19 12:38 Clumped Platelets Not Reportable 10/14/19 12:38 Plt Clumps, EDTA Not Reportable 10/14/19 12:38 Large Platelets Not Reportable 10/14/19 12:38 Giant Platelets Not Reportable 10/14/19 12:38 Platelet Satelliting Not Reportable 10/14/19 12:38 Plt Morphology Comment Not Reportable 10/14/19 12:38 RBC Morphology Not Reportable 10/14/19 12:38 Dimorphic RBCs Not Reportable 10/14/19 12:38 Polychromasia Not Reportable 10/14/19 12:38 Hypochromasia Not Reportable 10/14/19 12:38 Poikilocytosis Not Reportable 10/14/19 12:38 Anisocytosis Not Reportable 10/14/19 12:38 Microcytosis Not Reportable 10/14/19 12:38 Macrocytosis Not Reportable 10/14/19 12:38 Spherocytes Not Reportable 10/14/19 12:38 Pappenheimer Bodies Not Reportable 10/14/19 12:38 Sickle Cells Not Reportable 10/14/19 12:38 Target Cells Not Reportable 10/14/19 12:38 Tear Drop Cells Not Reportable 10/14/19 12:38 Ovalocytes Not Reportable 10/14/19 12:38 Helmet Cells Not Reportable 10/14/19 12:38 [place] Bodies Not Reportable 10/14/19 12:38 [place] Rings Not Reportable 10/14/19 12:38 [place]ra Cells Not Reportable 10/14/19 12:38 Bite Cells Not Reportable 10/14/19 12:38 Crenated Cell Not Reportable 10/14/19 12:38 Elliptocytes Not Reportable 10/14/19 12:38 Acanthocytes (Spur) Not Reportable 10/14/19 12:38 Rouleaux Not Reportable 10/14/19 12:38 Hemoglobin C Crystals Not Reportable 10/14/19 12:38 Schistocytes Not Reportable 10/14/19 12:38 Malaria parasites Not Reportable 10/14/19 12:38 [place] Bodies Not Reportable 10/14/19 12:38 Hem Pathologist Commnt No 10/14/19 12:38 Sodium 139 mmol/L (137-145) 10/14/19 12:38 Potassium 4.3 mmol/L (3.6-5.0) 10/14/19 12:38 Chloride 103.9 mmol/L (98-107) 10/14/19 12:38 Carbon Dioxide 20 mmol/L (22-30) L 10/14/19 12:38 Anion Gap 19 mmol/L 10/14/19 12:38 BUN 18 mg/dL (9-20) 10/14/19 12:38 Creatinine 1.0 mg/dL (0.8-1.5) 10/14/19 12:38 Estimated GFR > 60 ml/min 10/14/19 12:38 BUN/Creatinine Ratio 18 % 10/14/19 12:38 Glucose 117 mg/dL (75-100) H 10/14/19 12:38 POC Glucose 99 (70-105) 10/14/19 12:33 Calcium 9.0 mg/dL (8.4-10.2) 10/14/19 12:38 Total Bilirubin 0.20 mg/dL (0.1-1.2) 10/14/19 12:38 AST 21 units/L (5-40) 10/14/19 12:38 ALT 39 units/L (7-56) 10/14/19 12:38 Alkaline Phosphatase 118 units/L (35-129) 10/14/19 12:38 Ammonia 48.0 umol/L (25-60) 10/14/19 12:38 Troponin T < 0.010 ng/mL (0.00-0.029) 10/14/19 12:38 Total Protein 6.9 g/dL (6.3-8.2) 10/14/19 12:38 Albumin 4.0 g/dL (3.9-5) 10/14/19 12:38 Albumin/Globulin Ratio 1.4 % 10/14/19 12:38 TSH 0.813 mlU/mL (0.270-4.200) 10/14/19 12:38 Urine Color Straw (Yellow) 10/14/19 Unknown Urine Turbidity Clear (Clear) 10/14/19 Unknown Urine pH 6.0 (5.0-7.0) 10/14/19 Unknown Ur Specific [place] 1.006 (1.003-1.030) 10/14/19 Unknown Urine Protein <15 mg/dl mg/dL (Negative) 10/14/19 Unknown Urine Glucose (UA) Neg mg/dL (Negative) 10/14/19 Unknown Urine Ketones Neg mg/dL (Negative) 10/14/19 Unknown Urine Blood Neg (Negative) 10/14/19 Unknown Urine Nitrite Neg (Negative) 10/14/19 Unknown Urine Bilirubin Neg (Negative) 10/14/19 Unknown Urine Urobilinogen < 2.0 mg/dL (<2.0) 10/14/19 Unknown Ur Leukocyte Esterase Neg (Negative) 10/14/19 Unknown Urine WBC (Auto) 1.0 /HPF (0.0-6.0) 10/14/19 Unknown Urine RBC (Auto) 1.0 /HPF (0.0-6.0) 10/14/19 Unknown Urine Mucus Few /HPF 10/14/19 Unknown Plasma/Serum Alcohol < 0.01 % (0-0.07) 10/14/19 12:38 - Imaging and Cardiology EKG: report reviewed (Sinus Bradycardia) Chest x-ray: report reviewed (NAF) [place]/IV: IV Catheter Type [Right INT / Saline Lock Antecubital] Assessment and Plan Advance Directives: Yes (Full code) VTE prophylaxis?: Chemical Plan of care discussed with patient/family: Yes - Patient Problems (1) Acute encephalopathy Status: Acute Plan to address problem: REsolving Leukocytosis Infection ?? 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
== END 2019-10-15 01:00 | disposition admitted as inpatient to this hospital (09) ==
LOC: ED 12:06
DX: R41.82 Altered mental status, unspecified (principal); E11.9 Type 2 diabetes mellitus without complications; J45.909 Unspecified asthma, uncomplicated; Z86.73 Personal history of transient ischemic attack (TIA), and cerebral infarction without residual deficits; Z79.899 Other long term (current) drug therapy
CPT/HCPCS: 36415; 70450; 71045; 80053; 81001; 82140; 82962; 84443; 84484; 85007; 85025; 93005; 93010; 99285; J7030; 80320; G0480

== ENCOUNTER 2021-06-21 09:52 | Day surgery (SDC) | payer OTHER ==
--- NOTE | 2021-06-16 10:55 | Anesthesia Consultation ---
Anesthesia Consult and Med Hx Date of service: 06/21/21 - Airway Anesthetic Teeth Evaluation: Chipped (Many missing) ROM Head & Neck: Adequate Mental/Hyoid Distance: Adequate Mallampati Class: Class III Intubation Access Assessment: Probably Good - Pre-Operative Health Status ASA Pre-Surgery Classification: ASA4 Proposed Anesthetic Plan: MAC (GA if needed) - Pulmonary Hx Smoking: Yes (NOW 1/4 PPD , BEFORE CVA 1 1/2 PPD) Hx Asthma: Yes (STATES "JUST SEASONAL") SOB: Yes (SOB) COPD: Yes (PER OLD CHART- PT DENIES) - Cardiovascular System Hx Hypertension: Yes (2019) Hx Coronary Artery Disease: Yes (Mild reversible ischemia on 2020 stress test here) Hx Heart Murmur: Yes - Central Nervous System Hx Seizures: Yes (STARTED AFTER 2 CVA , OFF MEDS X 1 YR,LAST SEIZURE 2 WEEKS AGO) CVA: Yes (X 2 () , X 3 (2019),TROUBLE TALKING,RT SIDED WEAKNESS) Hx Back Pain: Yes Hx Psychiatric Problems: Yes (Depression) - Endocrine Hx Non-Insulin Dependent Diabetes: Yes - Hematic Hx Anemia: No - Other Systems Hx Cancer: No Hx Obesity: No
[2021-06-16 11:07] LABS: Hematocrit 47.2 % (35.5-45.6); Hemoglobin 14.3 gm/dl (11.8-15.2); Mean Corpuscular HGB Conc 30 % (32-34); Mean Corpuscular Volume 94 fl (84-94); Platelet Count 317 K/mm3 (140-440); Red Blood Count 5.01 M/mm3 (3.65-5.03); Red Cell Distribution Width 15.5 % (13.2-15.2)
[2021-06-16 11:21] LABS: BUN/Creatinine Ratio 9; Blood Urea Nitrogen 7 mg/dL (9-20); Calcium 8.8 mg/dL (8.4-10.2); Hemolysis Index 41
[~2021-06-21 09:52] MED LIST: CLINDAMYCIN 600 MG/50 mL 600 MG/50 ML BAG IV NR; LACTATED RINGERS 1,000 ML IV SCH
--- NOTE | 2021-06-21 10:40 | XRay Report ---
Right tibia and fibula 4 views INDICATION: Preop FINDINGS: Tibia and fibula shafts appear normal and intact. Small ossific density and anterior joint space could represent loose body seen on lateral view. No displaced fractures seen. Signer Name: Wilfrid Hinds MD Signed: 06/21/2021 10:36 AM Workstation Name: [id number]
[2021-06-21] MEDS ORDERED: dexAMETHasone 20 MG/5 ML VIAL ONE (12:50)
[2021-06-21] MEDS ORDERED: LIDOCAINE MPF (2%) 20 MG/1 ML VIAL 5 ML ONE (12:50)
[2021-06-21] MEDS ORDERED: ONDANSETRON 4 MG/2 ML INJ ONE (12:50)
[2021-06-21] MEDS ORDERED: propofoL 200 MG/20 ML VIAL IV ONE (12:51)
[2021-06-21] MEDS ORDERED: fentaNYL 100 MCG/2 ML INJ ONE (12:51)
[2021-06-21] MEDS ORDERED: SUCCINYLCHOLINE CHLORIDE 200 MG/10 ML INJ MDV ONE (13:54)
[2021-06-21] MEDS ORDERED: ROCURONIUM 50 MG/5 ML INJ IV ONE (13:54)
[2021-06-21] MEDS ORDERED: PHENYLEPHRINE/NS 1,000 MCG/10 ML SYRINGE (OR USE) IV ONE (13:56)
[2021-06-21] MEDS ORDERED: ONDANSETRON 4 MG/2 ML INJ IV PRN (13:59)
[2021-06-21] MEDS ORDERED: HYDROmorphone 1 MG/1 ML INJ IV PRN (13:59)
--- NOTE | 2021-06-21 13:59 | Anesthesia Day of Surgery ---
Anesthesia Day of Surgery - Day of Surgery Patient Examined: Yes Patient H&P Reviewed: Yes Patient is NPO: Yes
[2021-06-21] MEDS ORDERED: ePHEDrine SULFATE 50 MG/1 ML INJ ONE (14:07)
[2021-06-21 15:43] VITALS: BP 118/70
--- NOTE | 2021-06-21 16:12 | Post Anesthesia Evaluation ---
- Post Anesthesia Evaluation Patient Participated: Yes Airway Patent: Yes Stable Respiratory Function: Yes Nausea/Vomiting: No Temp > 96.8F: Yes Pain Manageable: Yes Adequeate Hydration: Yes Anesthesia Complications: No
--- NOTE | 2021-06-21 18:11 | Operative Report ---
Operative Report Operative Report: OPERATIVE REPORT Preop diagnosis : Superficial, soft tissue mass , right calf ; Postop diagnosis : Subcutaneous cyst with semifluid contents, right calf Procedure : Subcutaneous excision soft tissue cyst, right calf; with excisional biopsy. Surgeon : Alfredo Masterson MD Anesthesia : General anesthesia with ETT Details of operative technique : Patient was brought from the holding area in same-day surgery where he was prepared for surgery and taken to the operating room where he underwent general anesthesia utilizing an endotracheal tube. He was then turned and positioned in the prone position and all pressure points were well-padded. The right leg and foot were prepped and draped in the usual sterile fashion utilizing ChloraPrep solution. The extremity was then elevated, and exsanguinated with an Esmarch bandage, and the tourniquet was inflated to 300 mmHg. A timeout was then called by the circulating nurse and once again the correct site was identified. The patient was noted to have a small rounded subcutaneous mass that was soft and malleable just over the central portion of the right gastrocnemius muscle approximately at the mid portion of the leg near the raphae. The mass measured approximately 3 to 3.5 cm in its longest diameter. A straight midline longitudinal incision was made directly over the mass. Dissection was carried down through the fibrofatty layer. Small bleeders were clamped and cauterized with the Bovie. Utilizing small tenotomy scissors the mass was circumferentially dissected and during the course of the dissection the cyst was opened revealing semi-soft granular material which was evacuated and sent for pathological analysis. There was no sign of infection. The remaining remnants of the cystic covering were dissected and evacuated. Wound was then irrigated copiously with normal saline. Subcutaneous layer was closed with individual sutures of 0 V icryl. The skin was reapproximated utilizing 3-0 nylon individual sutures. A soft compressive dressing was then applied utilizing Xeroform dressing and an ABD pad. This was secured with a Kerlix and a simple Aman wrap. The patient was then awakened and taken to recovery room in excellent condition. Estimated blood loss : Negligible Drains : None Complications : None Tourniquet time : 15 minutes
== END 2021-06-21 16:10 | disposition home or self-care (01) ==
LOC: OR 09:52
PROVIDERS: ATTEND Orthopaedic Surgery
DX: M85.662 Other cyst of bone, left lower leg (principal); I10 Essential (primary) hypertension; E11.9 Type 2 diabetes mellitus without complications; F32.9 Major depressive disorder, single episode, unspecified; I25.10 Atherosclerotic heart disease of native coronary artery without angina pectoris; J44.1 Chronic obstructive pulmonary disease with (acute) exacerbation; E78.00 Pure hypercholesterolemia, unspecified; Z86.73 Personal history of transient ischemic attack (TIA), and cerebral infarction without residual deficits; Z79.82 Long term (current) use of aspirin; Z79.84 Long term (current) use of oral hypoglycemic drugs; Z79.899 Other long term (current) drug therapy; Z87.891 Personal history of nicotine dependence; Z88.0 Allergy status to penicillin; Z88.6 Allergy status to analgesic agent; Z98.890 Other specified postprocedural states; Z20.822 Contact with and (suspected) exposure to COVID-19
CPT/HCPCS: 28039; 36415; 73590; 80048; 82962; 85027; 88307; J0330; J1100; J2370; J2405; J2704; J3010; J3490; J7120; J7502; U0003

== ENCOUNTER 2021-10-20 18:44 | Emergency (ER) | payer OTHER, MEDICARE ==
[2021-10-20] MEDS ORDERED: SODIUM CHLORIDE 0.9% 1000 ML 1,000 ML IV ONE (21:21)
[2021-10-20 22:07] LABS: Basophils # (Auto) 0.1 K/mm3 (0.0-0.1); Basophils % (Auto) 0.6 % (0.0-1.8); Eosinophils # (Auto) 0.5 K/mm3 (0.0-0.4); Eosinophils % (Auto) 5.1 % (0.0-4.3); Hematocrit 44.7 % (35.5-45.6); Hemoglobin 14.6 gm/dl (11.8-15.2); Lymphocytes # (Auto) 3.9 K/mm3 (1.2-5.4); Lymphocytes % (Auto) 36.6 % (13.4-35.0); Mean Corpuscular HGB Conc 33 % (32-34); Mean Corpuscular Volume 93 fl (84-94); Monocytes # (Auto) 0.7 K/mm3 (0.0-0.8); Monocytes % (Auto) 6.5 % (0.0-7.3); Platelet Count 329 K/mm3 (140-440); Red Blood Count 4.82 M/mm3 (3.65-5.03); Red Cell Distribution Width 14.3 % (13.2-15.2)
[2021-10-20 22:23] LABS: Alanine Aminotransferase 34 units/L (7-56); Albumin 4.2 g/dL (3.9-5); BUN/Creatinine Ratio 11; Blood Urea Nitrogen 12 mg/dL (9-20); Calcium 9.4 mg/dL (8.4-10.2); Hemolysis Index 4
--- NOTE | 2021-10-20 22:32 | Cat Scan Report ---
CT HEAD WITHOUT CONTRAST INDICATION / CLINICAL INFORMATION: Seizure. TECHNIQUE: All CT scans at this location are performed using CT dose reduction for ALARA by means of automated exposure control. COMPARISON: CT dated 10/14/2019. FINDINGS: BRAIN PARENCHYMA: No acute intracranial hemorrhage. No evidence of recent infarct. No mass effect or midline shift. VENTRICULAR SYSTEM/EXTRA-AXIAL SPACES: Ventricles are normal for age. No extra-axial fluid collection . ORBITS: Normal as visualized. SKELETAL SYSTEM/SOFT TISSUES: Normal bones and soft tissues. PARANASAL SINUSES/MASTOID AIR CELLS: Near complete opacification of the left maxillary sinus with pro minent mucus retention cysts in the right maxillary sinus. Other paranasal sinuses are essentially cl ear. ADDITIONAL FINDINGS: None. IMPRESSION: 1. No acute intracranial abnormality. 2. Maxillary sinus disease, as above. Signer Name: Joby Hamm MD Signed: 10/20/2021 10:27 PM Workstation Name: [id number]
--- NOTE | 2021-10-20 22:33 | XRay Report ---
XR chest 1V ap INDICATION / CLINICAL INFORMATION: Dyspnea. COMPARISON: 10/14/2019 FINDINGS: SUPPORT DEVICES: None. HEART /PULMONARY VASCULATURE: No significant abnormality. LUNGS / PLEURA: There is elevation of the right hemidiaphragm. Mildly low lung volumes with bronchova scular crowding and streaky perihilar and bibasilar opacities, favored to reflect atelectasis. No siz able pleural effusion. No pneumothorax. IMPRESSION: Mildly diminished lung volumes with streaky perihilar and bibasilar opacities, favored to reflect ate lectasis. Otherwise, no acute chest process. Signer Name: Jboy Hamm MD Signed: 10/20/2021 10:29 PM Workstation Name: [id number]
[2021-10-21 00:50] LABS: Mucus,Urine FEW /HPF
[2021-10-21 00:53] LABS: Color,Urine Yellow (Yellow)
[2021-10-21 00:54] LABS: Bilirubin,Urine Negative (Negative); Blood,Urine Negative (Negative); Protein,Urine <15 mg/dL mg/dL (Negative); Urobilinogen,Urine < 2.0 mg/dL (<2.0)
[2021-10-21 00:55] LABS: Amphetamine Screen,Urine PRESUMPTIVE NEGATIVE; Benzodiazepines Screen,Urine PRESUMPTIVE NEGATIVE; Cannabinoid Screen,Urine PRESUMPTIVE NEGATIVE; Cocaine Screen,Urine PRESUMPTIVE NEGATIVE; Methadone Screen,Urine PRESUMPTIVE NEGATIVE; Opiate Screen,Urine PRESUMPTIVE NEGATIVE
--- NOTE | 2021-10-21 03:08 | Emergency Department Report ---
ED Seizure HPI - General Chief Complaint: Seizure Stated Complaint: SEIZURE Time Seen by Provider: 10/20/21 21:17 Source: EMS Mode of arrival: Stretcher Limitations: Altered Mental Status - History of Present Illness Initial Comments: EMS reports that pt had a sz at home around 5 pm that was witnessed by family, reports that pt was having slurred speech and r side arm weakness, [facility] and was given Ativan 2 mg IM and Ativan 2mg IV TAPPER SHANK Complaint: seizure -: Sudden, hour(s) Description of Episode: loss of consciousness, tonic-clonic movement Witnessed:: Yes Trauma: No Seizure History: known seizure disorder Place: home Possible Precipitating Event: none Associated Symptoms: denies: denies other symptoms, chest pain, confusion, fever/chills, loss of appetite, malaise - Related Data Home Medications Medication Instructions Recorded Confirmed Last Taken Albuterol Sulfate [Proventil Hfa] 1 puff IH PRN PRN 06/16/21 06/16/21 Unknown Aspirin [Aspirin BABY CHEW TAB] 325 mg PO QDAY 06/16/21 06/16/21 Unknown Clopidogrel [Plavix] 75 mg PO QDAY 06/16/21 06/16/21 Unknown Gabapentin [Neurontin] 600 mg PO BID 06/16/21 06/16/21 06/21/21 06:00 Loratadine [Allergy Relief] 10 mg PO DAILY 06/16/21 06/16/21 Unknown Metoprolol [Lopressor TAB] 25 mg PO QAM 06/16/21 06/16/21 06/21/21 06:00 Sertraline [Zoloft] 100 mg PO QDAY 06/16/21 06/16/21 06/21/21 06:00 Simvastatin 40 mg PO DAILY 06/16/21 06/16/21 Unknown hydroCHLOROthiazide [Hctz] 12.5 mg PO QDAY 06/16/21 06/16/21 Unknown Previous Rx's Medication Instructions Recorded Last Taken Type Metformin HCl [metFORMIN] 1,000 mg PO BID #60 10/11/19 Unknown Rx Allergies Allergy/AdvReac Type Severity Reaction Status Date / Time morphine Allergy Rash Verified 06/14/21 16:25 Penicillins Allergy Unknown Verified 06/14/21 16:25 ED Review of Systems ROS: Stated complaint: SEIZURE Other details as noted in HPI Constitutional: denies: chills, fever Eyes: denies: eye pain, eye discharge, vision change ENT: denies: ear pain, throat pain Respiratory: denies: cough, shortness of breath, wheezing Cardiovascular: denies: chest pain, palpitations Endocrine: no symptoms reported Gastrointestinal: denies: abdominal pain, nausea, diarrhea Genitourinary: denies: urgency, dysuria Musculoskeletal: denies: back pain, joint swelling, arthralgia Skin: denies: rash, lesions Neurological: denies: headache, weakness, paresthesias Psychiatric: denies: anxiety, depression Hematological/Lymphatic: denies: easy bleeding, easy bruising ED Past Medical Hx - Past Medical History Hx Hypertension: Yes (2019) Hx CVA: Yes (2 "mini strokes", no deficits 1999) Hx Diabetes: Yes Hx Seizures: Yes (STARTED AFTER 2 CVA , OFF MEDS X 1 YR,LAST SEIZURE 2 WEEKS AGO) Hx Asthma: Yes (STATES "JUST SEASONAL") Hx COPD: No (PER OLD CHART- PT DENIES) - Surgical History Past Surgical History?: Yes Additional Surgical History: right knee surg x6, pylonidal cyst surg x2, cervical fusion with bone graft from left hip 2 weeks ago - Social History Smoking Status: Current Every Day Smoker - Medications Home Medications: Home Medications Medication Instructions Recorded Confirmed Last Taken Type Metformin HCl [metFORMIN] 1,000 mg PO BID #60 10/11/19 06/16/21 Unknown Rx Albuterol Sulfate [Proventil Hfa] 1 puff IH PRN PRN 06/16/21 06/16/21 Unknown History Aspirin [Aspirin BABY CHEW TAB] 325 mg PO QDAY 06/16/21 06/16/21 Unknown History Clopidogrel [Plavix] 75 mg PO QDAY 06/16/21 06/16/21 Unknown History Gabapentin [Neurontin] 600 mg PO BID 06/16/21 06/16/21 06/21/21 06:00 History Loratadine [Allergy Relief] 10 mg PO DAILY 06/16/21 06/16/21 Unknown History Metoprolol [Lopressor TAB] 25 mg PO QAM 06/16/21 06/16/21 06/21/21 06:00 History Sertraline [Zoloft] 100 mg PO QDAY 06/16/21 06/16/21 06/21/21 06:00 History Simvastatin 40 mg PO DAILY 06/16/21 06/16/21 Unknown History hydroCHLOROthiazide [Hctz] 12.5 mg PO QDAY 06/16/21 06/16/21 Unknown History ED Physical Exam - General Limitations: Altered Mental Status General appearance: alert, postictal, other (drowsy sleepy ) - Head Head exam: Present: atraumatic, normocephalic - Eye Eye exam: Present: normal appearance - ENT ENT exam: Present: mucous membranes moist - Neck Neck exam: Present: normal inspection - Respiratory Respiratory exam: Present: normal lung sounds bilaterally. Absent: respiratory distress - Cardiovascular Cardiovascular Exam: Present: regular rate, normal rhythm. Absent: systolic murmur, diastolic murmur, rubs, gallop - GI/Abdominal GI/Abdominal exam: Present: soft, normal bowel sounds - Rectal Rectal exam: Present: deferred - Extremities Exam Extremities exam: Present: normal inspection - Back Exam Back exam: Present: normal inspection - Neurological Exam Neurological exam: Present: other (drwosy ) - Psychiatric Psychiatric exam: Present: normal affect, normal mood - Skin Skin exam: Present: intact, normal color. Absent: rash ED Course Vital Signs 10/20/21 10/20/21 10/20/21 19:45 21:12 22:39 Temperature 99.1 F Pulse Rate 80 82 70 Respiratory 20 16 16 Rate Blood Pressure 113/75 105/78 96/65 [Right] O2 Sat by Pulse 94 97 95 Oximetry ED Medical Decision Making - Lab Data Result diagrams: 10/20/21 21:29 10/20/21 21:29 - EKG Data Interpretation: no acute changes - Radiology Data Radiology results: report reviewed, image reviewed - Medical Decision Making work up unremaarkable , fluids given pt is arousable , pt was given ativan prior to arrival so he sleepy , but arousable, vss no dsitress pt is on vimpat, will see his nruologist on 12th Critical care attestation.: If time is entered above; I have spent that time in minutes in the direct care of this critically ill patient, excluding procedure time. ED Disposition Clinical Impression: Seizure Disposition: 01 HOME / SELF CARE / HOMELESS Is pt being admited?: No Does the pt Need Aspirin: No Condition: Stable Instructions: Epilepsy, [id number] Referrals: PRIMARY CARE, [Primary Care Provider] - 3-5 Days
[2021-10-21 04:01] VITALS: BP 103/77
== END 2021-10-21 04:48 | disposition home or self-care (01) ==
LOC: ED 18:44
DX: G40.909 Epilepsy, unspecified, not intractable, without status epilepticus (principal); I10 Essential (primary) hypertension; Z88.0 Allergy status to penicillin; E11.8 Type 2 diabetes mellitus with unspecified complications; J45.909 Unspecified asthma, uncomplicated; Z88.5 Allergy status to narcotic agent
CPT/HCPCS: 36415; 70450; 71045; 80053; 80307; 81001; 82550; 84484; 85025; 96360; 99285; J7030; 80320; Q0162; G0480

== ENCOUNTER 2021-10-21 18:30 | Emergency (ER) | payer OTHER, MEDICARE ==
--- NOTE | 2021-10-21 19:35 | Emergency Department Report ---
ED Seizure HPI - General Chief Complaint: Seizure Stated Complaint: SEIZURE Time Seen by Provider: 10/21/21 18:40 Source: EMS Mode of arrival: Stretcher Limitations: No Limitations - History of Present Illness Initial Comments: This patient presents to the emergency department after having 2 seizures which were witnessed by the . The patient is taking Vimpat for which according to the he is compliant. He was seen yesterday in the emergency department for seizures as well and subsequently discharged. The patient has a history of CVA x3 resultant speech and gait problems. He has had them Adynovate seen for COVID-19. The patient does not have a history of recent falls. In addition to seizure disorder the patient has a history of COPD, encephalopathy, hypertension and diabetes type 2. MD Complaint: seizure - Related Data Home Medications Medication Instructions Recorded Confirmed Last Taken Albuterol Sulfate [Proventil Hfa] 1 puff IH PRN PRN 06/16/21 06/16/21 Unknown Aspirin [Aspirin BABY CHEW TAB] 325 mg PO QDAY 06/16/21 06/16/21 Unknown Clopidogrel [Plavix] 75 mg PO QDAY 06/16/21 06/16/21 Unknown Gabapentin [Neurontin] 600 mg PO BID 06/16/21 06/16/21 06/21/21 06:00 Loratadine [Allergy Relief] 10 mg PO DAILY 06/16/21 06/16/21 Unknown Metoprolol [Lopressor TAB] 25 mg PO QAM 06/16/21 06/16/21 06/21/21 06:00 Sertraline [Zoloft] 100 mg PO QDAY 06/16/21 06/16/21 06/21/21 06:00 Simvastatin 40 mg PO DAILY 06/16/21 06/16/21 Unknown hydroCHLOROthiazide [Hctz] 12.5 mg PO QDAY 06/16/21 06/16/21 Unknown Previous Rx's Medication Instructions Recorded Last Taken Type Metformin HCl [metFORMIN] 1,000 mg PO BID #60 10/11/19 Unknown Rx Allergies Allergy/AdvReac Type Severity Reaction Status Date / Time morphine Allergy Rash Verified 10/21/21 18:36 Penicillins Allergy Unknown Verified 10/21/21 18:36 ED Review of Systems ROS: Stated complaint: SEIZURE Other details as noted in HPI Comment: All other systems reviewed and negative Constitutional: no symptoms reported, weakness. denies: diaphoresis Eyes: denies: eye discharge, vision change ENT: denies: throat pain, congestion Respiratory: denies: cough, shortness of breath, wheezing Cardiovascular: denies: chest pain, palpitations Endocrine: no symptoms reported Gastrointestinal: denies: abdominal pain, nausea, diarrhea Genitourinary: denies: urgency, dysuria Musculoskeletal: denies: back pain, joint swelling, arthralgia Neurological: weakness, confusion Psychiatric: denies: depression Hematological/Lymphatic: denies: easy bleeding ED Past Medical Hx - Past Medical History Hx Hypertension: Yes (2019) Hx CVA: Yes (2 "mini strokes", no deficits 1999) Hx Diabetes: Yes Hx Seizures: Yes (STARTED AFTER 2 CVA , OFF MEDS X 1 YR,LAST SEIZURE 2 WEEKS AGO) Hx Asthma: Yes (STATES "JUST SEASONAL") Hx COPD: No (PER OLD CHART- PT DENIES) - Surgical History Additional Surgical History: right knee surg x6, pylonidal cyst surg x2, cervical fusion with bone graft from left hip 2 weeks ago - Social History Smoking Status: Current Every Day Smoker - Medications Home Medications: Home Medications Medication Instructions Recorded Confirmed Last Taken Type Metformin HCl [metFORMIN] 1,000 mg PO BID #60 10/11/19 06/16/21 Unknown Rx Albuterol Sulfate [Proventil Hfa] 1 puff IH PRN PRN 06/16/21 06/16/21 Unknown History Aspirin [Aspirin BABY CHEW TAB] 325 mg PO QDAY 06/16/21 06/16/21 Unknown History Clopidogrel [Plavix] 75 mg PO QDAY 06/16/21 06/16/21 Unknown History Gabapentin [Neurontin] 600 mg PO BID 06/16/21 06/16/21 06/21/21 06:00 History Loratadine [Allergy Relief] 10 mg PO DAILY 06/16/21 06/16/21 Unknown History Metoprolol [Lopressor TAB] 25 mg PO QAM 06/16/21 06/16/21 06/21/21 06:00 History Sertraline [Zoloft] 100 mg PO QDAY 06/16/21 06/16/21 06/21/21 06:00 History Simvastatin 40 mg PO DAILY 06/16/21 06/16/21 Unknown History hydroCHLOROthiazide [Hctz] 12.5 mg PO QDAY 06/16/21 06/16/21 Unknown History ED Physical Exam - General Limitations: No Limitations - Head Head exam: Present: atraumatic, normocephalic, normal inspection - Eye Eye exam: Present: normal appearance, PERRL, EOMI Pupils: Present: normal accommodation - ENT ENT exam: Present: normal exam - Neck Neck exam: Present: normal inspection, full ROM. Absent: tenderness, meningismus - Respiratory Respiratory exam: Present: normal lung sounds bilaterally. Absent: respiratory distress, wheezes, rales, rhonchi - Cardiovascular Cardiovascular Exam: Present: regular rate, normal rhythm - GI/Abdominal GI/Abdominal exam: Present: soft. Absent: distended, tenderness - Rectal Rectal exam: Present: deferred - exam: Present: normal inspection - Extremities Exam Extremities exam: Present: normal inspection, full ROM. Absent: tenderness, pedal edema, joint swelling, calf tenderness - Back Exam Back exam: Present: normal inspection, full ROM, tenderness - Neurological Exam Neurological exam: Present: alert (But slow with response. Patient is following commands appropriately. He is noted to have a global decrease in strength.), altered (Post ictal versus the patient's baseline.), CN II-XII intact - Psychiatric Psychiatric exam: Absent: agitated, suicidal ideation - Skin Skin exam: Present: warm, dry ED Course Vital Signs 10/21/21 10/21/21 10/21/21 18:34 18:59 20:38 Temperature 97.8 F Pulse Rate 79 61 Respiratory 16 18 17 Rate Blood Pressure 136/92 113/71 [Left] O2 Sat by Pulse 98 98 94 Oximetry 10/22/21 04:49 Temperature 98.8 F Pulse Rate 52 L Respiratory 14 Rate Blood Pressure 103/76 [Left] O2 Sat by Pulse 95 Oximetry ED Medical Decision Making - Lab Data Result diagrams: 10/21/21 20:01 10/21/21 20:01 The patient's labs were reviewed and there was no significant abnormality noted. - Radiology Data Radiology results: report reviewed I reviewed the report of the radiologist on the CT scan of the head and this revealed no significant abnormality. - Medical Decision Making I spoke with the patient's neurologist. The decision was made to increase his seizure medications by 100 mg and discharge him with follow-up in the office. I spoke to the patient's as well with the treatment plan. She agrees with this. The patient was observed for a period of time in the emergency department and there was no further evidence of seizure episodes. Critical care attestation.: If time is entered above; I have spent that time in minutes in the direct care of this critically ill patient, excluding procedure time. ED Disposition Clinical Impression: Seizure, Grand mal seizure Disposition: HOME / SELF CARE / HOMELESS Is pt being admited?: No Does the pt Need Aspirin: No Condition: Stable Additional Instructions: Increase the dosage of the Vimpat to 200 mg/day and follow-up with the neurologist next available appointment Referrals: REYNA VANESSA MD [Primary Care Provider] - 3-5 Days
[2021-10-21 20:12] LABS: Basophils % (Auto) 0.5 % (0.0-1.8); Eosinophils # (Auto) 0.3 K/mm3 (0.0-0.4); Eosinophils % (Auto) 3.8 % (0.0-4.3); Hematocrit 42.8 % (35.5-45.6); Hemoglobin 13.9 gm/dl (11.8-15.2); Lymphocytes # (Auto) 2.6 K/mm3 (1.2-5.4); Lymphocytes % (Auto) 29.7 % (13.4-35.0); Mean Corpuscular HGB Conc 33 % (32-34); Mean Corpuscular Volume 93 fl (84-94); Monocytes # (Auto) 0.5 K/mm3 (0.0-0.8); Monocytes % (Auto) 6.3 % (0.0-7.3); Platelet Count 280 K/mm3 (140-440); Red Blood Count 4.61 M/mm3 (3.65-5.03); Red Cell Distribution Width 14.3 % (13.2-15.2)
[2021-10-21 20:40] LABS: Alanine Aminotransferase 33 units/L (7-56); Albumin 3.9 g/dL (3.9-5); BUN/Creatinine Ratio 12; Blood Urea Nitrogen 12 mg/dL (9-20); Calcium 9.2 mg/dL (8.4-10.2); Hemolysis Index 10
[2021-10-21 21:18] LABS: Bilirubin,Urine NEG (Negative); Blood,Urine NEG (Negative); Color,Urine Yellow (Yellow); Mucus,Urine FEW /HPF; Protein,Urine <15 mg/dL mg/dL (Negative); Urobilinogen,Urine < 2.0 mg/dL (<2.0); WBC,Urine < 1.0 /HPF (0.0-6.0)
[2021-10-21 21:19] LABS: Amphetamine Screen,Urine Negative; Benzodiazepines Screen,Urine Negative; Cannabinoid Screen,Urine Negative; Cocaine Screen,Urine Negative; Methadone Screen,Urine Negative; Opiate Screen,Urine Negative
--- NOTE | 2021-10-21 21:54 | Cat Scan Report ---
CT BRAIN: 10/21/2021 INDICATION / CLINICAL INFORMATION: Seizure. COMPARISON: None available. FINDINGS: BRAIN/INTRACRANIAL STRUCTURES: Unenhanced CT images of the brain were obtained and compared to a prio r exam from 10/20/2021. There is been no change. There is no evidence of acute abnormality. Ventricles and sulci are within normal limits of size and shape for a patient of this age. There is no evidence of acute ischemic injury, hemorrhage, or mass. There are no abnormal extra-axial fluid collections. EXTRACRANIAL STRUCTURES: Unremarkable. IMPRESSION: No acute abnormality. No change when compared to 10/20/2021. All CT scans at this location are performed using dose reduction to ALARA by means of automated expos ure control. Signer Name: Esau Maya MD Signed: 10/21/2021 9:49 PM Workstation Name: [id number]
[2021-10-22 04:51] VITALS: BP 103/76
== END 2021-10-22 04:50 | disposition home or self-care (01) ==
LOC: ED 18:30
DX: G40.409 Other generalized epilepsy and epileptic syndromes, not intractable, without status epilepticus (principal); I10 Essential (primary) hypertension; J45.909 Unspecified asthma, uncomplicated; F17.200 Nicotine dependence, unspecified, uncomplicated; Z88.0 Allergy status to penicillin; Z88.5 Allergy status to narcotic agent; Z79.899 Other long term (current) drug therapy; Z79.82 Long term (current) use of aspirin
CPT/HCPCS: 36415; 70450; 80053; 80307; 80320; 81001; 85025; 99284; G0480

== ENCOUNTER 2022-02-16 18:29 | Observation (INO) | payer OTHER, MEDICAID ==
[2022-02-17] MEDS ORDERED: levETIRAcetam 1000 MG/NS 0.75% 1,000 MG/100 ML BAG IV ONE (01:24)
[2022-02-17] MEDS ORDERED: METOCLOPRAMIDE 10 MG/2 ML INJ IV ONE (01:35)
[2022-02-17] MEDS ORDERED: MIDAZOLAM 2 MG/2 ML INJ IV ONE (01:35)
--- NOTE | 2022-02-17 01:36 | Emergency Department Report ---
ED General Adult HPI - General Chief complaint: Headache Stated complaint: HEADACHE/SHARP PAINS ON ORTHODOX/PAIN MOVING DOWN Time Seen by Provider: 02/17/22 01:16 Source: patient, family, RN notes reviewed, old records reviewed Mode of arrival: Ambulatory Limitations: Physical Limitation - History of Present Illness Initial comments: The patient was evaluated in the emergency department for symptoms described in the history of present illness. He/she was evaluated in the context of the global COVID-19 pandemic, which necessitated consideration that the patient might be at risk for infection with the virus that causes COVID-19. Institutional protocols and algorithms that pertain to the evaluation of patients at risk for COVID-19 are in a state of rapid change based on information released by regulatory bodies including the CDC and federal and s guevara organizations. These policies and algorithms were followed during the patient's care in the emergency department. Please note that these policies, procedures and recommendations changed on a rapid basis. This is a pleasant and cooperative 51-year-old gentleman, with a history of diabetes, hypertension, hyperlipidemia, tobacco abuse, stroke x2, with residual right-sided deficits, and right-sided blindness. The patient presents to the department today with complaint of nontraumatic bilateral temporal pain without jaw claudication for the past 2 weeks. While in the waiting room, he had a 4- second generalized tonic-clonic seizure, which is now resolved. The patient reports that after the convulsion/seizure, he is not able to see out of either eye. -: Gradual, week(s) Location: head (Bilateral shinto) Quality: aching Consistency: constant Improves with: rest Worsens with: movement - Related Data Home Medications Medication Instructions Recorded Confirmed Last Taken Albuterol Sulfate [Proventil Hfa] 1 puff IH PRN PRN 06/16/21 06/16/21 Unknown Aspirin [Aspirin BABY CHEW TAB] 325 mg PO QDAY 06/16/21 06/16/21 Unknown Clopidogrel [Plavix] 75 mg PO QDAY 06/16/21 06/16/21 Unknown Gabapentin [Neurontin] 600 mg PO BID 06/16/21 06/16/21 06/21/21 06:00 Loratadine [Allergy Relief] 10 mg PO DAILY 06/16/21 06/16/21 Unknown Metoprolol [Lopressor TAB] 25 mg PO QAM 06/16/21 06/16/21 06/21/21 06:00 Sertraline [Zoloft] 100 mg PO QDAY 06/16/21 06/16/21 06/21/21 06:00 Simvastatin 40 mg PO DAILY 06/16/21 06/16/21 Unknown hydroCHLOROthiazide [Hctz] 12.5 mg PO QDAY 06/16/21 06/16/21 Unknown Previous Rx's Medication Instructions Recorded Last Taken Type Metformin HCl [metFORMIN] 1,000 mg PO BID #60 10/11/19 Unknown Rx Allergies Allergy/AdvReac Type Severity Reaction Status Date / Time morphine Allergy Rash Verified 10/21/21 18:36 Penicillins Allergy Unknown Verified 10/21/21 18:36 ED Review of Systems ROS: Stated complaint: HEADACHE/SHARP PAINS ON ORTHODOX/PAIN MOVING DOWN Other details as noted in HPI Constitutional: denies: fever Eyes: vision change ENT: denies: congestion Respiratory: denies: cough Cardiovascular: denies: chest pain Gastrointestinal: denies: abdominal pain Musculoskeletal: myalgia Neurological: weakness Psychiatric: anxiety ED Past Medical Hx - Past Medical History Hx Hypertension: Yes (2019) Hx CVA: Yes (2 "mini strokes", no deficits 1999) Hx Diabetes: Yes Hx Seizures: Yes (STARTED AFTER 2 CVA , OFF MEDS X 1 YR,LAST SEIZURE 2 WEEKS AGO) Hx Asthma: Yes (STATES "JUST SEASONAL") Hx COPD: No (PER OLD CHART- PT DENIES) - Surgical History Additional Surgical History: right knee surg x6, pylonidal cyst surg x2, cervical fusion with bone graft from left hip 2 weeks ago - Social History Smoking Status: Current Every Day Smoker - Medications Home Medications: Home Medications Medication Instructions Recorded Confirmed Last Taken Type Metformin HCl [metFORMIN] 1,000 mg PO BID #60 10/11/19 06/16/21 Unknown Rx Albuterol Sulfate [Proventil Hfa] 1 puff IH PRN PRN 06/16/21 06/16/21 Unknown History Aspirin [Aspirin BABY CHEW TAB] 325 mg PO QDAY 06/16/21 06/16/21 Unknown History Clopidogrel [Plavix] 75 mg PO QDAY 06/16/21 06/16/21 Unknown History Gabapentin [Neurontin] 600 mg PO BID 06/16/21 06/16/21 06/21/21 06:00 History Loratadine [Allergy Relief] 10 mg PO DAILY 06/16/21 06/16/21 Unknown History Metoprolol [Lopressor TAB] 25 mg PO QAM 06/16/21 06/16/21 06/21/21 06:00 History Sertraline [Zoloft] 100 mg PO QDAY 06/16/21 06/16/21 06/21/21 06:00 History Simvastatin 40 mg PO DAILY 06/16/21 06/16/21 Unknown History hydroCHLOROthiazide [Hctz] 12.5 mg PO QDAY 06/16/21 06/16/21 Unknown History ED Physical Exam - General Limitations: Physical Limitation General appearance: alert, anxious - Head Head exam: Present: atraumatic, normocephalic - Eye Eye exam: Present: normal appearance, EOMI, other (The patient does not blink in response to threat. The pupils do not react to light.). Absent: nystagmus - ENT ENT exam: Present: normal exam, normal orophraynx, mucous membranes moist, normal external ear exam - Neck Neck exam: Present: normal inspection, full ROM. Absent: tenderness, meningismus - Respiratory Respiratory exam: Present: normal lung sounds bilaterally. Absent: respiratory distress, wheezes, rales, rhonchi, stridor, decreased breath sounds - Cardiovascular Cardiovascular Exam: Present: regular rate, normal rhythm, normal heart sounds. Absent: bradycardia, tachycardia, irregular rhythm, systolic murmur, diastolic murmur, rubs, gallop - GI/Abdominal GI/Abdominal exam: Present: soft. Absent: distended, tenderness, guarding, rebound, rigid, pulsatile mass - Rectal Rectal exam: Present: deferred - Extremities Exam Extremities exam: Present: normal inspection, full ROM, normal capillary refill, other (2+ pulses noted in the bilateral upper and lower extremities. There is no palpable cord. negative Homans sign. Muscular compartments are soft. The pelvis is stable.). Absent: pedal edema, calf tenderness - Back Exam Back exam: Present: normal inspection. Absent: tenderness, CVA tenderness (R), CVA tenderness (L), paraspinal tenderness, vertebral tenderness - Neurological Exam Neurological exam: Present: alert, other (There is no facial droop. The tongue is midline. EOMI. 5 out of 5 strength in 4 extremities. Patient reports loss of chronic sensation in his right arm and right leg) - Psychiatric Psychiatric exam: Present: anxious - Skin Skin exam: Present: warm, dry, intact, normal color. Absent: rash ED Course Vital Signs 02/16/22 02/17/22 02/17/22 19:39 01:25 01:31 Temperature 98.0 F Pulse Rate 84 Respiratory 18 Rate Blood Pressure 121/72 119/74 Blood Pressure [Right] O2 Sat by Pulse 99 98 97 Oximetry 02/17/22 01:42 Temperature 98.3 F Pulse Rate 89 Respiratory 16 Rate Blood Pressure Blood Pressure 119/74 [Right] O2 Sat by Pulse 98 Oximetry - Reevaluation(s) Reevaluation #1: 02/17/22 02:16 Differential diagnosis, include but not limited to: Seizure, pseudoseizure, Matias's paralysis, cortical blindness, TIA, temporal arteritis Assessment and plan: 51-year-old gentleman presenting with bilateral temporal pain, without jaw claudication, who had a convulsion or seizure in the waiting room, now with complete visual loss. He does not blink in response to threat. He moves 4 extremities spontaneously. He is clinically sober. He has a GCS of 14-15. His examination is not suggestive or consistent with a large vessel occlusion. This is very unlikely to be an acute ischemic stroke. Myself and consulting stroke neurology, Dr. Cantu agree that tPA is not indicated. We recommend admission for MRI, and repeat neurologic consultation and evaluation. Sed rate unremarkable, CRP pending. Is recommended that we withhold high-dose steroids at this time. Migraine cocktail is ordered. Have recommended admission to the medical service. Patie nt and family are agreeable to this plan of care. Hospital physician, Dr Kendell Rowe to admit to IMS Patient denies ocular pain. His cornea not cloudy or hazy. Given age of 51, lack of pulsatility, normal sed rate, temporal arteritis is very unlikely ED Medical Decision Making - Lab Data Result diagrams: 02/17/22 01:27 02/17/22 01:27 Vital Signs 02/16/22 02/17/22 02/17/22 19:39 01:25 01:31 Temperature 98.0 F Pulse Rate 84 Respiratory 18 Rate Blood Pressure 121/72 119/74 Blood Pressure [Right] O2 Sat by Pulse 99 98 97 Oximetry 02/17/22 01:42 Temperature 98.3 F Pulse Rate 89 Respiratory 16 Rate Blood Pressure Blood Pressure 119/74 [Right] O2 Sat by Pulse 98 Oximetry Lab Results 02/17/22 02/17/22 02/17/22 Range/Units 01:27 01:27 01:27 WBC 10.4 (4.5-11.0) K/mm3 RBC 5.03 (3.65-5.03) M/mm3 Hgb 15.3 H (11.8-15.2) gm/dl Hct 46.4 H (35.5-45.6) % MCV 92 (84-94) fl MCH 31 (28-32) pg MCHC 33 (32-34) % RDW 14.1 (13.2-15.2) % Plt Count 343 (140-440) K/mm3 ESR 9 (0-20) mm/Hr PT (12.2-14.9) Sec. INR (0.87-1.13) Sodium 141 (137-145) mmol/L Potassium 3.9 (3.6-5.0) mmol/L Chloride 101.3 (98-107) mmol/L Carbon Dioxide 26 (22-30) mmol/L Anion Gap 18 mmol/L BUN 15 (9-20) mg/dL Creatinine 1.5 H (0.8-1.3) mg/dL Estimated GFR 49 ml/min BUN/Creatinine Ratio 10 % Glucose 151 H (75-100) mg/dL POC Glucose (70-105) mg/dL Calcium 9.6 (8.4-10.2) mg/dL Magnesium 2.20 (1.7-2.3) mg/dL Total Bilirubin 0.30 (0.1-1.2) mg/dL AST 20 (5-40) units/L ALT 20 (7-56) units/L Alkaline Phosphatase 76 (35-129) units/L Total Creatine Kinase 74 (55-170) units/L Total Protein 7.4 (6.3-8.2) g/dL Albumin 4.4 (3.9-5) g/dL Albumin/Globulin Ratio 1.5 % Salicylates < 0.3 L (2.8-20.0) mg/dL Acetaminophen (10.0-30.0) ug/mL Plasma/Serum Alcohol (0-0.07) % 02/17/22 02/17/22 02/17/22 Range/Units 01:27 01:27 01:27 WBC (4.5-11.0) K/mm3 RBC (3.65-5.03) M/mm3 Hgb (11.8-15.2) gm/dl Hct (35.5-45.6) % MCV (84-94) fl MCH (28-32) pg MCHC (32-34) % RDW (13.2-15.2) % Plt Count (140-440) K/mm3 ESR (0-20) mm/Hr PT 12.4 (12.2-14.9) Sec. INR 0.84 L (0.87-1.13) Sodium (137-145) mmol/L Potassium (3.6-5.0) mmol/L Chloride (98-107) mmol/L Carbon Dioxide (22-30) mmol/L Anion Gap mmol/L BUN (9-20) mg/dL Creatinine (0.8-1.3) mg/dL Estimated GFR ml/min BUN/Creatinine Ratio % Glucose (75-100) mg/dL POC Glucose (70-105) mg/dL Calcium (8.4-10.2) mg/dL Magnesium (1.7-2.3) mg/dL Total Bilirubin (0.1-1.2) mg/dL AST (5-40) units/L ALT (7-56) units/L Alkaline Phosphatase (35-129) units/L Total Creatine Kinase (55-170) units/L Total Protein (6.3-8.2) g/dL Albumin (3.9-5) g/dL Albumin/Globulin Ratio % Salicylates (2.8-20.0) mg/dL Acetaminophen 5.0 L (10.0-30.0) ug/mL Plasma/Serum Alcohol < 0.01 (0-0.07) % 02/17/22 Range/Units 01:36 WBC (4.5-11.0) K/mm3 RBC (3.65-5.03) M/mm3 Hgb (11.8-15.2) gm/dl Hct (35.5-45.6) % MCV (84-94) fl MCH (28-32) pg MCHC (32-34) % RDW (13.2-15.2) % Plt Count (140-440) K/mm3 ESR (0-20) mm/Hr PT (12.2-14.9) Sec. INR (0.87-1.13) Sodium (137-145) mmol/L Potassium (3.6-5.0) mmol/L Chloride (98-107) mmol/L Carbon Dioxide (22-30) mmol/L Anion Gap mmol/L BUN (9-20) mg/dL Creatinine (0.8-1.3) mg/dL Estimated GFR ml/min BUN/Creatinine Ratio % Glucose (75-100) mg/dL POC Glucose 170 H (70-105) mg/dL Calcium (8.4-10.2) mg/dL Magnesium (1.7-2.3) mg/dL Total Bilirubin (0.1-1.2) mg/dL AST (5-40) units/L ALT (7-56) units/L Alkaline Phosphatase (35-129) units/L Total Creatine Kinase (55-170) units/L Total Protein (6.3-8.2) g/dL Albumin (3.9-5) g/dL Albumin/Globulin Ratio % Salicylates (2.8-20.0) mg/dL Acetaminophen (10.0-30.0) ug/mL Plasma/Serum Alcohol (0-0.07) % - EKG Data -: EKG Interpreted by Pa EKG shows normal: sinus rhythm Rate: normal - EKG Data 02/17/22 02:13 The EKG is interpreted at 01: 3 0 Sinus rhythm, with a rate of 87 bpm. Normal axis, normal P wave axis, normal intervals, motion artifact, not a STEMI. Appears grossly unchanged when compared to prior EKG from September 2019. - Radiology Data Radiology results: pending, report reviewed, image reviewed CT HEAD WITHOUT CONTRAST INDICATION / CLINICAL INFORMATION: Seizure. TECHNIQUE: CT head was performed without administration of intravenous contrast. All CT scans at this location are performed using CT dose reduction for ALARA by means of automated exposure control. COMPARISON: CT head 10/21/2021 FINDINGS: CEREBRAL HEMISPHERES: There is no evidence of large territorial infarction or significant abnormality of dickerson-white matter differentiation. Ventricles within normal limits. No midline shift. Basal cisterns patent. HEMORRHAGE: None. CEREBELLUM / BRAINSTEM: No significant abnormality. ORBITS: No significant abnormality. SOFT TISSUES: No significant abnormality. SKULL: No si gnificant abnormality. PARANASAL SINUSES / MASTOID AIR CELLS: Near complete opacification left maxillary sinus mucus retention cyst right maxillary sinus. ADDITIONAL FINDINGS: None. IMPRESSION: 1. No acute intracranial abnormality. 2. Near complete opacification of the left maxillary sinus. Signer Name: Hossein Oswald II, MD Signed: 02/17/2022 12:56 AM Workstation Name: [id number] Critical care attestation.: If time is entered above; I have spent that time in minutes in the direct care of this critically ill patient, excluding procedure time. ED Disposition Clinical Impression: Seizure, Visual loss, Headache Disposition: ADMITTED INPATIENT Is pt being admited?: Yes Does the pt Need Aspirin: No Condition: Good
[2022-02-17 01:43] LABS: Hematocrit 46.4 % (35.5-45.6); Hemoglobin 15.3 gm/dl (11.8-15.2); Mean Corpuscular HGB Conc 33 % (32-34); Mean Corpuscular Volume 92 fl (84-94); Platelet Count 343 K/mm3 (140-440); Red Blood Count 5.03 M/mm3 (3.65-5.03); Red Cell Distribution Width 14.1 % (13.2-15.2)
[2022-02-17 01:52] LABS: INR 0.84 (0.87-1.13)
--- NOTE | 2022-02-17 02:01 | Emergency Department Report ---
Blank Doc - Documentation Documentation: [facility] Consult Note # Demographics Consult Type: General Neurology Patient Location: Emergency Room First Name: Kyler Last Name: Syl Date of : 1970 Age: 51 Gender: Male Facility: [facility] Time of Initial Page ( Time): 02/17/2022, 01:27 Time of Return Call ( Time): 02/17/2022, 01:28 # HPI History: 51 yo man hx of stroke, residual right sided deficits, right eye blindness, hx of seizure d/o presenting with bilateral moravian pain for 2 weeks, and noted to have seizure or convulsion in the waiting room and now with some mild confusion. Patient is on # Scores Time of exam and NIHSS (): 02/17/2022, 01:49 Level of Consciousness 1a: [0] = Alert; keenly responsive LOC Questions 1b: [0] = Answers both questions correctly LOC Commands 1c: [0] = Performs both tasks correctly Best Gaze 2: [0] = Normal Visual 3: [3] = Bilateral hemianopia Facial Palsy 4: [0] = Normal symmetrical movements Motor Arm Left 5a: [0] = No drift Motor Arm Right 5b: [0] = No drift Motor Leg Left 6a: [0] = No drift Motor Leg Right 6b: [0] = No drift Limb Ataxia 7: [0] = Absent Sensory 8: [0] = Normal Best Language 9: [0] = No aphasia Dysarthria 10: [0] = Normal Extinction and Inattention 11: [0] = No abnormality NIHSS Total: 3 # Data Head CT: no bleed # Assessment Impression: History of stroke, seizure disorder History of right eye blindness, unclear etiology Complaints of 2 weeks bilateral moravian pain Reported seizure like activity in ER waiting room. Now patient notes bilateral total vision loss after seizure Unclear etiology of vision loss, does not fit stroke syndrome. Unclear etiology of moravian pain, possible intractable migraine vs tension headache. # Plan Thrombolytic/Intervention: NOT IV Thrombolysis or IA Intervention candidate Thrombolytic Exclusion: not consistent with stroke syndrome. Intraarterial Exclusion: not consistent with stroke. Target Blood Pressure: SBP < 160 Labs: CBC comprehensive metabolic panel lipid panel troponin TSH ua Other: If patient has any neurological deterioration please call me back immediately I have discussed my recommendations with the referring provider Additional Recommendations: cont keppra 1000mg bid eeg ine am mri brain and orbit wo contrast send esr/crp, however patient is out of typical age range for GCA migraine cocktail Disposition: admit # Logistics Telemedicine: Interactive 2 way audio and visual telecommunication technology was utilized during this visit
--- NOTE | 2022-02-17 02:01 | Cat Scan Report ---
CT HEAD WITHOUT CONTRAST INDICATION / CLINICAL INFORMATION: Seizure. TECHNIQUE: CT head was performed without administration of intravenous contrast. All CT scans at this location are performed using CT dose reduction for ALARA by means of automated exposure control. COMPARISON: CT head 10/21/2021 FINDINGS: CEREBRAL HEMISPHERES: There is no evidence of large territorial infarction or significant abnormality of dickerson-white matter differentiation. Ventricles within normal limits. No midline shift. Basal ciste rns patent. HEMORRHAGE: None. CEREBELLUM / BRAINSTEM: No significant abnormality. ORBITS: No significant abnormality. SOFT TISSUES: No significant abnormality. SKULL: No significant abnormality. PARANASAL SINUSES / MASTOID AIR CELLS: Near complete opacification left maxillary sinus mucus retenti on cyst right maxillary sinus. ADDITIONAL FINDINGS: None. IMPRESSION: 1. No acute intracranial abnormality. 2. Near complete opacification of the left maxillary sinus. Signer Name: Hossein Oswald II, MD Signed: 02/17/2022 1:56 AM Workstation Name: [id number]
[2022-02-17 02:02] LABS: Albumin 4.4 g/dL (3.9-5); Calcium 9.6 mg/dL (8.4-10.2)
[2022-02-17 02:04] LABS: Erythrocyte Sedimentation Rate 9 mm/Hr (0-20)
[2022-02-17] MEDS ORDERED: KETOROLAC 30 MG/1 ML INJ IV ONE (02:10)
[2022-02-17] MEDS ORDERED: SODIUM CHLORIDE 0.9% 500 ML 500 ML IV ONE (02:14)
[2022-02-17] MEDS ORDERED: ASPIRIN 81 MG TAB CHEW PO ONE (02:14)
[2022-02-17 02:50] LABS: Mucus,Urine FEW /HPF; RBC,Urine < 1.0 /HPF (0.0-6.0); WBC,Urine < 1.0 /HPF (0.0-6.0)
[2022-02-17] MEDS ORDERED: ONDANSETRON 4 MG/2 ML INJ IV PRN (02:53)
[2022-02-17] MEDS ORDERED: ACETAMINOPHEN 325 MG TAB PO PRN (02:53)
[2022-02-17] MEDS ORDERED: MORPHINE 2 MG/1 ML INJ IV PRN (02:53)
[2022-02-17] MEDS ORDERED: MORPHINE 4 MG/1 ML INJ IV PRN (02:53)
[2022-02-17] MEDS ORDERED: MAGNESIUM HYDROXIDE (MOM) ORAL LIQD UDC PO PRN (02:53)
[2022-02-17] MEDS ORDERED: DEXTROSE 50% IN WATER (25GM) 50 ML SYRINGE IV PRN (02:53)
[2022-02-17 02:55] LABS: Amphetamine Screen,Urine PRESUMPTIVE NEGATIVE; Benzodiazepines Screen,Urine PRESUMPTIVE NEGATIVE; Cannabinoid Screen,Urine PRESUMPTIVE NEGATIVE; Cocaine Screen,Urine PRESUMPTIVE NEGATIVE; Methadone Screen,Urine PRESUMPTIVE NEGATIVE; Opiate Screen,Urine PRESUMPTIVE NEGATIVE
[2022-02-17 02:56] LABS: Bilirubin,Urine Negative (Negative); Blood,Urine Negative (Negative); Color,Urine Straw (Yellow)
[2022-02-17 02:57] LABS: Protein,Urine <15 mg/dL mg/dL (Negative); Urobilinogen,Urine < 2.0 mg/dL (<2.0)
[2022-02-17] MEDS ORDERED: SODIUM CHLORIDE 0.9% 1000 ML 1,000 ML IV SCH (03:00)
--- NOTE | 2022-02-17 03:12 | History and Physical Report ---
History of Present Illness Date of examination: 02/17/22 Date of admission: 02/17/22 Chief complaint: Seizure disorder Visual loss History of present illness: 51-year-old male with known history of diabetes mellitus, hypertension, history of CVA with residual right-sided deficit, tobacco abuse and right-sided blindness presenting to the emergency room today complaining of headache which has been ongoing for the past 2 weeks. While in the waiting area patient had a tonic-clonic seizure which subsequently resolved. He does have complained that he has completely lost his vision after the seizure activity. Patient denies any nausea or vomiting, no blurry vision, no diaphoresis. Denies any chest pain or shortness of breath, denies any urinary or fecal incontinence during the seizure activity. Work-up in the emergency room today, CT scan of the head was unremarkable. Labs were also unremarkable except for creatinine level of 1.5 and glucose of 151. Patient was evaluated by the tele-neurologist and recommendation was to have patient worked up for possible CVA. Past History Past Medical History: COPD, diabetes, hypertension, hyperlipidemia, seizures, stroke, other (Asthma) Past Surgical History: Other (right knee surg x6, pylonidal cyst surg x2, cervical fusion with bone graft from left hip 2 weeks ago) Social history: smoking (Current Daily Smoker) Family history: no significant family history Medications and Allergies Allergies Allergy/AdvReac Type Severity Reaction Status Date / Time morphine Allergy Rash Verified 10/21/21 18:36 Penicillins Allergy Unknown Verified 10/21/21 18:36 Home Medications Medication Instructions Recorded Confirmed Last Taken Type Metformin HCl [metFORMIN] 1,000 mg PO BID #60 10/11/19 06/16/21 Unknown Rx Clopidogrel [Plavix] 75 mg PO QDAY 06/16/21 06/16/21 Unknown History Gabapentin [Neurontin] 600 mg PO BID 06/16/21 06/16/21 06/21/21 06:00 History Loratadine [Allergy Relief] 10 mg PO DAILY 06/16/21 06/16/21 Unknown History Metoprolol [Lopressor TAB] 25 mg PO QAM 06/16/21 06/16/21 06/21/21 06:00 History Simvastatin 40 mg PO DAILY 06/16/21 06/16/21 Unknown History hydroCHLOROthiazide [Hctz] 12.5 mg PO QDAY 06/16/21 06/16/21 Unknown History Fenofibrate 160 mg PO 02/17/22 Unknown History Glimepiride 02/17/22 Unknown History levETIRAcetam [Keppra TAB] 500 mg PO BID 02/17/22 02/17/22 Unknown History Active Meds: Active Medications Acetaminophen (Acetaminophen 325 Mg Tab) 650 mg PO Q4H PRN PRN Reason: Pain MILD(1-3)/Fever >100.5/SHOOK Dextrose (Dextrose 50% In Water (25gm) 50 Ml Syringe) 50 ml IV Q30MIN PRN; Protocol PRN Reason: Hypoglycemia Heparin Sodium (Porcine) (Heparin 5,000 Unit/1 Ml Vial) 5,000 unit SUB-Q Q8HR ADRIEL Sodium Chloride (Nacl 0.9% 1000 Ml) 1,000 mls @ 75 mls/hr IV DIRECT ADRIEL Insulin Human Lispro (Insulin Lispro 100 Unit/Ml) 0 unit SUB-Q ACHS ADRIEL; Protocol Magnesium Hydroxide (Magnesium Hydroxide (Mom) Oral Liqd Udc) 30 ml PO Q4H PRN PRN Reason: Constipation Morphine Sulfate (Morphine 2 Mg/1 Ml Inj) 2 mg IV Q4H PRN PRN Reason: Pain, Moderate (4-6) Morphine Sulfate (Morphine 4 Mg/1 Ml Inj) 4 mg IV Q4H PRN PRN Reason: Pain , Severe (7-10) Ondansetron HCl (Ondansetron 4 Mg/2 Ml Inj) 4 mg IV Q8H PRN PRN Reason: Nausea And Vomiting Sodium Chloride (Sodium Chloride 0.9% 10 Ml Flush Syringe) 10 ml IV BID ADRIEL Sodium Chloride (Sodium Chloride 0.9% 10 Ml Flush Syringe) 10 ml IV PRN PRN PRN Reason: LINE FLUSH Review of Systems Constitutional: no fever, no chills Ears, nose, mouth and throat: no nasal congestion, no sore throat Cardiovascular: no chest pain, no palpitations Respiratory: no cough, no shortness of breath Gastrointestinal: no nausea, no vomiting, no diarrhea Genitourinary Male: no dysuria, no hematuria, no flank pain, no nocturia Musculoskeletal: no neck pain, no low back pain Integumentary: no rash, no pruritis Neurological: seizures, headaches, no confusion Psychiatric: no anxiety, no depression Endocrine: no polyphagia, no polydipsia, no polyuria, no nocturia Exam - Constitutional Vitals: Temp Pulse Resp BP Pulse Ox 98.3 F 89 16 119/74 98 02/17/22 01:42 02/17/22 01:42 02/17/22 01:42 02/17/22 01:42 02/17/22 01:42 General appearance: Present: no acute distress, well-nourished - EENT Eyes: Present: PERRL, EOM intact. Absent: scleral icterus ENT: hearing intact, clear oral mucosa, dentition normal - Neck Neck: Present: supple, normal ROM - Respiratory Respiratory effort: normal Respiratory: bilateral: CTA - Cardiovascular Rhythm: regular Heart Sounds: Present: S1 & S2. Absent: gallop, systolic murmur, diastolic murmur, rub, click - Extremities Extremities: no ischemia, pulses intact, pulses symmetrical, No edema, normal temperature, normal color, Full ROM Peripheral Pulses: within normal limits - Abdominal General gastrointestinal: Present: soft, non-tender, non-distended, normal bowel sounds. Absent: mass - Integumentary Integumentary: Present: clear, warm, dry, normal turgor. Absent: rash - Musculoskeletal Musculoskeletal: right sided weakness - Psychiatric Psychiatric: appropriate mood/affect, intact judgment & insight, memory intact, cooperative - Neurologic Neurologic: CNII-XII intact, moves all extremities, other (Visual loss) Results - Labs CBC & Chem 7: 02/17/22 01:27 02/17/22 01:27 Labs: Abnormal lab results 02/17/22 02/17/22 02/17/22 Range/Units 01: 01:27 01:27 Hgb 15.3 H (11.8-15.2) gm/dl Hct 46.4 H (35.5-45.6) % INR (0.87-1.13) Creatinine 1.5 H (0.8-1.3) mg/dL Glucose 151 H (75-100) mg/dL POC Glucose (70-105) mg/dL Salicylates < 0.3 L (2.8-20.0) mg/dL Acetaminophen (10.0-30.0) ug/mL 02/17/22 02/17/22 02/17/22 Range/Units 01: 01:27 01:36 Hgb (11.8-15.2) gm/dl Hct (35.5-45.6) % INR 0.84 L (0.87-1.13) Creatinine (0.8-1.3) mg/dL Glucose (75-100) mg/dL POC Glucose 170 H (70-105) mg/dL Salicylates (2.8-20.0) mg/dL Acetaminophen 5.0 L (10.0-30.0) ug/mL Assessment and Plan Assessment: 1.Seizure Disorder 2.Visual Loss 3.Headache 4.D/mellitus 5.Hypertension 6.H/O CVA 7.Hyperlipidemia Plan: 1.Patient admitted to Telemetry 2.Seizure Precautions 3.Neurology consult for evaluation 4.Start on Aspirin, statin. 5.Schedule for MRI brain, carotid doppler,Echo. 6. Patient placed on sliding scale insulin. We will monitor Accu-Cheks closely. 7. We will place patient on antiseizure medicationKeppra. DVT Prophylaxis: SQ Heparin Code Status: Full Code
[2022-02-17] MEDS ORDERED: HYDROmorphone 1 MG/1 ML INJ IV PRN (04:05)
[2022-02-17] MEDS: HEPARIN 5,000 UNIT/1 ML VIAL SUB-Q SCH ×3 (07:14→22:04)
[2022-02-17] MEDS: INSULIN LISPRO 100 UNIT/ML SUB-Q SCH ×4 (07:45→22:04)
[2022-02-17] MEDS ORDERED: NON-FORMULARY EACH (Gabapentin [Neurontin] 600 MG Tablet) PO SCH (10:00)
[2022-02-17] MEDS: levETIRAcetam 500 MG in DEXTROSE 5% IN WATER 100 ML IV SCH ×2 (10:25→22:04)
[2022-02-17] MEDS: GABAPENTIN 300 MG CAP PO SCH ×2 (11:18→22:04)
--- NOTE | 2022-02-17 12:57 | Event Note ---
Date: 02/17/22 Patient seen and examined at the bedside. He has a history of right-sided eye blindness due to past strokes. Reports acute blindness in the left eye. He denies any pain. Examination showed no reaction to light or accommodation in both eyes. Patient follows with ophthalmology outpatient and would prefer to follow with them after discharge. He also has a history of seizure disorder for which he takes Keppra. Currently awaiting MRI of the brain and orbit and inpatient neurology consultation.
--- NOTE | 2022-02-17 13:20 | Magnetic Resonance Report ---
MRI BRAIN WITHOUT AND WITH CONTRAST INDICATION / CLINICAL INFORMATION: seizure, CVA r/o, LOSS OF VISION LT EYE PATIENT EYAL, BEST POSSIBLE EXAM, REPEATED SCANS. TECHNIQUE: Multiplanar, multisequence MR images of the brain were obtained. In addition to whole brain imaging t hin section high-resolution pre and post contrast imaging was obtained through the orbits. Contrast: ml, administered intravenously. COMPARISON: CT 10/14/2019, 10/20/2021 and 02/17/2022 FINDINGS: BRAIN / INTRACRANIAL CONTENTS: The cortical sulci are normal in size and configuration. Asymmetry of the lateral ventricles, left larger than right, is probably on a developmental basis. There is no mas s effect. No evidence of intracranial hemorrhage or extra-axial fluid collection is seen. No signific ant areas of abnormal brain parenchymal signal intensity are identified. There is no indication of re mote cortical infarction. Diffusion weighted scans are negative. There is no indication of acute isch emic injury. The brainstem and cerebellum have an unremarkable appearance. MIDLINE STRUCTURES:No abnormalities are seen to involve the pituitary gland. Pineal region has an unr emarkable appearance. CRANIOCERVICAL JUNCTION: No abnormalities are identified at the craniocervical junction. VASCULAR FLOW-VOIDS: Normal flow-voids are present within the major intracranial vessels. ORBITS: Thin section high-resolution scans were obtained through the orbits both before and after the administration of intravenous contrast material. The globes have a normal appearance. No abnormaliti es are seen along the course of the optic nerves. Incidental note is made of CSF signal intensity wit hin the optic nerve root sheaths in a bilaterally symmetrical pattern. Extraocular muscles have a nor mal appearance. Superior ophthalmic veins have an unremarkable appearance. No abnormalities are seen to involve the intercondylar or extraconal fat. Lacrimal glands have an unremarkable appearance. No a bnormalities are seen at the orbital apices or along the course of the superior orbital fissures. Opt ic chiasm has an unremarkable appearance. Cavernous sinuses have a normal appearance. SINUSES / MASTOIDS: Near-complete opacification of the left maxillary sinus is noted. There is enhanc ing mucosal circumferential pattern in the left maxillary sinus. Inflammatory changes in the left max illary sinus have progressed in comparison to baseline head CT 10/14/2019 and follow-up head CT 022. Retention cyst or polyp persists at the base of the right maxillary sinus. Mucosal disease obstr ucts the air passageways of the left OM U. Following the administration of intravenous contrast enhancement of normal vascular structures is dem onstrated. No areas of abnormal contrast enhancement are identified. IMPRESSION: 1. No intracranial abnormalities are identified on MRI brain without and with intravenous contrast. 2. The orbits have an unremarkable appearance. 3. Interval progression of left maxillary sinus inflammatory changes since 10/14/2019. Signer Name: Phi Bustamante MD Signed: 02/17/2022 1:15 PM Workstation Name: [id number]
--- NOTE | 2022-02-17 13:51 | Electrocardiograph Report ---
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
[2022-02-17 17:09] VITALS: BP 113/71
[2022-02-18] MEDS: HEPARIN 5,000 UNIT/1 ML VIAL SUB-Q SCH (07:29)
[2022-02-18] MEDS: INSULIN LISPRO 100 UNIT/ML SUB-Q SCH (08:32)
--- NOTE | 2022-02-18 08:44 | Consultation ---
History of Present Illness Consult date: 02/18/22 Reason for Consult: Pain History of present illness: 51-year-old male with known history of diabetes mellitus, hypertension, history of CVA with residual right-sided deficit, tobacco abuse and right-sided blindness presenting to the emergency room today complaining of headache which has been ongoing for the past 2 weeks. While in the waiting area patient had a tonic-clonic seizure which subsequently resolved. He does have complained that he has completely lost his vision after the seizure activity. Patient denies any nausea or vomiting, no blurry vision, no diaphoresis. Denies any chest pain or shortness of breath, denies any urinary or fecal incontinence during the seizure activity. Work-up in the emergency room today, CT scan of the head was unremarkable. Labs were also unremarkable except for creatinine level of 1.5 and glucose of 151. Patient was evaluated by the tele-neurologist and recommendation was to have patient worked up for possible CVA. Patient reports to me no headache, there was bitemporal headaches . The patient reports back to base line . Past History Past Medical History: COPD, diabetes, hypertension, hyperlipidemia, seizures, stroke, other (Asthma) Past Surgical History: Other (right knee surg x6, pylonidal cyst surg x2, cervical fusion with bone graft from left hip 2 weeks ago) Social history: smoking (Current Daily Smoker) Family history: no significant family history Medications and Allergies Allergies Allergy/AdvReac Type Severity Reaction Status Date / Time morphine Allergy Rash Verified 02/17/22 09:43 Penicillins Allergy Unknown Verified 02/17/22 09:43 Home Medications Medication Instructions Recorded Confirmed Last Taken Type Metformin HCl [metFORMIN] 1,000 mg PO BID #60 10/11/19 02/17/22 Unknown Rx Clopidogrel [Plavix] 75 mg PO QDAY 06/16/21 02/17/22 Unknown History Gabapentin [Neurontin] 600 mg PO TID 06/16/21 02/17/22 06/21/21 06:00 History Loratadine [Allergy Relief] 10 mg PO DAILY 06/16/21 02/17/22 Unknown History Simvastatin 40 mg PO DAILY 06/16/21 02/17/22 Unknown History hydroCHLOROthiazide [Hctz] 12.5 mg PO QDAY 06/16/21 02/17/22 Unknown History Aspirin [Adult Aspirin] 81 mg PO QDAY 02/17/22 02/17/22 Unknown History Empagliflozin [Jardiance] 25 mg PO QDAY 02/17/22 02/17/22 Unknown History Fenofibrate 160 mg PO QDAY 02/17/22 02/17/22 Unknown History Glimepiride [Amaryl] 4 mg PO QDAY 02/17/22 02/17/22 Unknown History Metoprolol Succinate [Toprol Xl] 25 mg PO QDAY 02/17/22 02/17/22 Unknown History Triamcinolone Acetonide [Triderm] 2 gm TP BID 02/17/22 02/17/22 Unknown History levETIRAcetam [Keppra TAB] 500 mg PO BID 02/17/22 02/17/22 Unknown History Active Meds: Active Medications Acetaminophen (Acetaminophen 325 Mg Tab) 650 mg PO Q4H PRN PRN Reason: Pain MILD(1-3)/Fever >100.5/SHOOK Clopidogrel Bisulfate (Clopidogrel 75 Mg Tab) 75 mg PO QDAY ADRIEL Dextrose (Dextrose 50% In Water (25gm) 50 Ml Syringe) 0 ml IV Q30MIN PRN; Protocol PRN Reason: Hypoglycemia Gabapentin (Gabapentin 300 Mg Cap) 600 mg PO BID ADRIEL Last Admin: 02/17/22 22:04 Dose: Not Given Heparin Sodium (Porcine) (Heparin 5,000 Unit/1 Ml Vial) 5,000 unit SUB-Q Q8HR ADRIEL Last Admin: 02/18/22 07:29 Dose: Not Given Hydromorphone HCl (Hydromorphone 1 Mg/1 Ml Inj) 1 mg IV Q4H PRN PRN Reason: Pain , Severe (7-10) Sodium Chloride (Nacl 0.9% 1000 Ml) 1,000 mls @ 75 mls/hr IV DIRECT ADRIEL Last Admin: 02/17/22 09:07 Dose: 75 mls/hr Levetiracetam 500 mg/ Dextrose 105 mls @ 400 mls/hr IV Q12HR ADRIEL Last Admin: 02/17/22 22:04 Dose: 400 mls/hr Insulin Human Lispro (Insulin Lispro 100 Unit/Ml) 0 unit SUB-Q ACHS ADRIEL; Protocol Last Admin: 02/18/22 08:32 Dose: Not Given Magnesium Hydroxide (Magnesium Hydroxide (Mom) Oral Liqd Udc) 30 ml PO Q4H PRN PRN Reason: Constipation Ondansetron HCl (Ondansetron 4 Mg/2 Ml Inj) 4 mg IV Q8H PRN PRN Reason: Nausea And Vomiting Sodium Chloride (Sodium Chloride 0.9% 10 Ml Flush Syringe) 10 ml IV BID ADRIEL Last Admin: 02/17/22 22:05 Dose: 10 ml Sodium Chloride (Sodium Chloride 0.9% 10 Ml Flush Syringe) 10 ml IV PRN PRN PRN Reason: LINE FLUSH Physical Examination - Vital Signs Vital Signs: Vital Signs Temp Pulse Resp BP Pulse Ox 98.0 F 84 18 121/72 99 02/16/22 19:39 02/16/22 19:39 02/16/22 19:39 02/16/22 19:39 02/16/22 19:39 - Physical Exam Narrative exam: The patient is visually impaired . Moves All 4 extremity . Results - Laboratory Findings CBC and BMP: 02/17/22 01:27 02/17/22 01:27 Abnormal Lab Findings: Abnormal Labs 02/17/22 02/17/22 02/17/22 01:27 01:27 01:27 Hgb 15.3 H Hct 46.4 H INR Creatinine 1.5 H Glucose 151 H POC Glucose C-Reactive Protein Salicylates < 0.3 L Acetaminophen 02/17/22 02/17/22 02/17/22 01:27 01:27 01:27 Hgb Hct INR 0.84 L Creatinine Glucose POC Glucose C-Reactive Protein 1.50 H Salicylates Acetaminophen 5.0 L 02/17/22 01:36 Hgb Hct INR Creatinine Glucose POC Glucose 170 H C-Reactive Protein Salicylates Acetaminophen Assessment and Plan 1. Reviewed MRI Brain - i have provided to the patient phone number for [facility] . 2. Patient reports being back to [place], except that the patient has is having issues with vision . 3. Reports no Headaches . 4. Needs a close follow up with PCP. Dr. Barnes
--- NOTE | 2022-02-18 09:05 | Discharge Summary ---
Providers - Providers Date of Admission: 02/17/22 02:53 Date of discharge: 02/18/22 Attending physician: TASHI MUIR MD 02/17/22 02:53 Consult to Dietitian/Nutrition [CONS] Routine Physician Instructions: Reason For Exam: Reason for Consult: Diet education Consult to Physician [CONS] Routine Comment: Consulting Provider: SONA VERGARA Physician Instructions: Reason For Exam: Seizures,Visual loss,Headache Primary care physician: LUCAS GUTIERREZ Hospitalization Reason for admission: seizure Condition: Good Hospital course: Patient is a 51-year-old male with history of diabetes, hypertension, CVA with residual right-sided weakness and right-sided blindness who presented with visual loss and a witnessed seizure in the ED. CT of the head showed no acute intracranial abnormality and near complete opacification of the left maxillary sinus. MRI of the brain with and without contrast shows no intracranial abnormalities. Keppra was restarted home dose. Patient reported intermittent compliance with Keppra. Once stable, patient was discharged home with instructions to follow-up with his neurologist and planning analyst. Disposition: 01 HOME / SELF CARE / HOMELESS Final Discharge Diagnosis (Prints w/discharge instructions): Seizure disorder. Acute onset left-sided eye blindness. Chronic right blindness. History of CVA. hypertension. Hyperlipidemia. Tobacco dependence. History of diabetes Time spent for discharge: 35 minutes Core Measure Documentation - Palliative Care Palliative Care/ Comfort Measures: Not Applicable - Core Measures Any of the following diagnoses?: history only Exam - Physical Exam Narrative exam: GENERAL: Well-developed well-nourished. In no acute distress. HEENT: Negative pupillary dilation/constriction bilaterally to light. Blind. NECK: Supple. CHEST/LUNGS: CTAB on room air HEART/CARDIOVASCULAR: RRR. No murmur, rubs or gallops appreciated. ABDOMEN: +BS. NT/ND. SKIN: No rashes noted. NEURO: No focal motor deficit. Follows all commands. MUSCULOSKELETAL: No joint effusion EXTREMITIES: No cyanosis, clubbing or edema. PSYCH: Cooperative. - Constitutional Vitals: Temp Pulse Resp BP Pulse Ox 98.8 F 79 18 113/71 95 02/17/22 16:27 02/17/22 21:00 02/17/22 16:27 02/17/22 16:27 07/21/22 19:59 Plan Care Plan Goals: Please follow-up with your outpatient neurologist and planning analyst. Make sure to make an appointment with the ENT doctor you were given information for. Please take all your medications as prescribed. Do not drive with your visual impairment. Follow up with: LUCAS GUTIERREZ MD [Primary Care Provider] - 3-5 Days Prescriptions: levETIRAcetam [Keppra TAB] 500 mg PO BID 30 Days #60 tab
[2022-02-18] MEDS: levETIRAcetam 500 MG in DEXTROSE 5% IN WATER 100 ML IV SCH (09:26)
[2022-02-18] MEDS: GABAPENTIN 300 MG CAP PO SCH (09:26)
[2022-02-18 09:31] LABS: Basophils # (Auto) 0.1 K/mm3 (0.0-0.1); Basophils % (Auto) 0.6 % (0.0-1.8); Eosinophils # (Auto) 0.4 K/mm3 (0.0-0.4); Eosinophils % (Auto) 4.5 % (0.0-4.3); Hematocrit 41.5 % (35.5-45.6); Hemoglobin 14.3 gm/dl (11.8-15.2); Lymphocytes # (Auto) 3.7 K/mm3 (1.2-5.4); Lymphocytes % (Auto) 39.2 % (13.4-35.0); Mean Corpuscular HGB Conc 35 % (32-34); Mean Corpuscular Volume 91 fl (84-94); Monocytes # (Auto) 0.6 K/mm3 (0.0-0.8); Monocytes % (Auto) 6.4 % (0.0-7.3); Platelet Count 313 K/mm3 (140-440); Red Blood Count 4.57 M/mm3 (3.65-5.03)
[2022-02-18 09:37] LABS: Calcium 8.8 mg/dL (8.4-10.2)
[2022-02-18] MEDS ORDERED: CLOPIDOGREL 75 MG TAB PO SCH (10:00)
== END 2022-02-18 09:43 | disposition home or self-care (01) ==
LOC: ED 18:29 → INTOOBSV 02-17 02:53 → 4A 02-17 02:53
PROVIDERS: ADMIT Internal Medicine Geriatric Medicine; ATTEND Student in an Organized Health Care Education/Training Program
DX: G40.909 Epilepsy, unspecified, not intractable, without status epilepticus (principal); H54.7 Unspecified visual loss; I10 Essential (primary) hypertension; E11.9 Type 2 diabetes mellitus without complications; E78.5 Hyperlipidemia, unspecified; R51.9 Headache, unspecified; J44.9 Chronic obstructive pulmonary disease, unspecified; F17.210 Nicotine dependence, cigarettes, uncomplicated; R29.703 NIHSS score 3; Z86.73 Personal history of transient ischemic attack (TIA), and cerebral infarction without residual deficits; Z79.899 Other long term (current) drug therapy; Z98.890 Other specified postprocedural states; Z79.4 Long term (current) use of insulin; Z79.84 Long term (current) use of oral hypoglycemic drugs
CPT/HCPCS: 36415; 70450; 70553; 80048; 80053; 80307; 81001; 82550; 82962; 83735; 85025; 85027; 85610; 85652; 86140; 93005; 95819; 96361; 96365; 96366; 96372; 96375; 96376; 99285; A9575; G0378; J1644; J1885; J1953; J2250; J2765; J7030; J7040; J7060; 80320; G0480